=== PATIENT | female | born 1960 | race African-American/Black ===

== ENCOUNTER 2022-03-27 22:33 | Inpatient (IN) | payer MEDICAID, OTHER ==
[~2022-03-27] VITALS: Ht 175.3 cm; Wt 127.0 kg
[2022-03-27 23:34] LABS: Basophils # (auto) 0 10 ^3/uL (0-0.2); Basophils % (auto) 0.4 % (0.0-2.0); Eosinophils # (auto) 0.1 10 ^3/uL (0-0.8); Eosinophils % (auto) 1.3 % (0.0-7.0); Hematocrit 36.3 % (36.0-46.0); Lymphocytes # (auto) 1.7 10 ^3/uL (0.4-5.4); Lymphocytes % (auto) 23.3 % (10.0-50.0); Mean Corpuscular Hemoglobin 29.3 pg (28.0-32.0); Mean Corpuscular Volume 88.9 fL (80.0-100.0); Monocytes # (auto) 0.5 10 ^3/uL (0-1.3); Monocytes % (auto) 6.8 % (0.0-12.0); Neutrophils % (auto) 68.2 % (37.0-80.0); Nucleated Red Blood Cells % 0.3 %; Red Blood Cells 4.09 10^6/uL (4.0-5.20); Red Cell Distribution Width 14.4 % (11.8-14.3); White Blood Cell 7.4 10^3/uL (4.4-10.8)
[2022-03-27 23:48] LABS: Albumin 3.4 g/dL (3.4-5.0); Calcium 9.1 mg/dL (8.5-10.1); Magnesium 2.5 mg/dL (1.6-2.6); Potassium 4.5 mmol/L (3.5-5.1)
[2022-03-27 23:53] LABS: Bilirubin, Total 0.2 mg/dL (0.2-1.0); Total Protein 6.9 g/dL (6.4-8.2)
[2022-03-28 00:08] LABS: BUN/Creatinine Ratio 22.2
[2022-03-28] MEDS ORDERED: ASPirin 325 MG TAB PO ONE (02:00)
[2022-03-28] MEDS ORDERED: NITROGLYCERIN 0.4 MG SL TAB SL ONE (02:00)
[2022-03-28] MEDS ORDERED: MORPHINE SULFATE INJECTION 2 MG/ML SYRG IV PRN (05:00)
[2022-03-28] MEDS ORDERED: NITROGLYCERIN 0.4 MG SL TAB SL PRN (05:00)
[2022-03-28] MEDS ORDERED: ACETAMINOPHEN 325 MG TAB PO PRN (05:00)
[2022-03-28] MEDS ORDERED: TEMAZEPAM 15 MG CAP PO PRN (05:00)
[2022-03-28] MEDS ORDERED: ONDANSETRON HCL 4 MG/2 ML VIAL IV PRN (05:00)
[2022-03-28] MEDS ORDERED: DEXTROSE (50%) 50ML SYRG IV PRN (05:00)
[2022-03-28] MEDS: InsuLIN REG 1unit/0.01ml Soln (100units/ml) SC SCH ×4 (07:00→22:00)
[2022-03-28] MEDS: ACCU-CHEK COMFORT CURVE STRIP VI SCH ×4 (07:45→22:23)
[2022-03-28 08:54] LABS: Urine Bacteria FEW /hpf (None Seen); Urine Blood Negative /uL (Negative); Urine Mucus FEW (None Seen); Urine WBC 7 /hpf (0 - 5)
[2022-03-28] MEDS ORDERED: NICOTINE 14 MG/24HR TOPICAL PATCH TD ONE (10:45)
[2022-03-28 11:51] LABS: Amphetamine Screen, Urine NEGATIVE (NEGATIVE); Barbiturate Scree,Urine NEGATIVE (NEGATIVE); Benzodiazephine Screen, Urine NEGATIVE (NEGATIVE); Cannabinoid Screen, Urine NEGATIVE (NEGATIVE); Cocaine Screen, Urine NEGATIVE (NEGATIVE); Opiate Scree,Urine NEGATIVE (NEGATIVE); Phencyclidine Screen, Urine NEGATIVE (NEGATIVE)
[2022-03-28 12:02] LABS: Cholesterol 166 mg/dL (< 200)
[2022-03-28 12:04] LABS: HDL Cholesterol 30 mg/dL (40-59); LDL Cholesterol 116 mg/dL (< 100); Triglycerides 123 mg/dL (< 150)
[2022-03-28] MEDS: ENOXAPARIN SOD 40 MG/0.4 ML SYRINGE SC SCH (12:52)
[2022-03-28] MEDS: ASPirin 81 mg TAB PO SCH (12:52)
[2022-03-28] MEDS: PANTOPRAZOLE 40 MG TAB PO SCH (12:52)
[2022-03-28] MEDS: LISINOPRIL 10 MG TAB PO SCH (12:52)
[2022-03-28 13:00] VITALS: BP 109/59
[2022-03-28 16:57] VITALS: BP 115/65
[2022-03-28] MEDS: ATORVASTATIN 20 MG TAB PO SCH (21:53)
[2022-03-28 22:00] VITALS: BP 103/42
[2022-03-29] MEDS ORDERED: LISI-716 PO (03:33)
[2022-03-29 05:00] VITALS: BP 110/60
[2022-03-29 05:48] LABS: Basophils # (auto) 0 10 ^3/uL (0-0.2); Basophils % (auto) 0.4 % (0.0-2.0); Eosinophils # (auto) 0.1 10 ^3/uL (0-0.8); Eosinophils % (auto) 1.5 % (0.0-7.0); Hematocrit 35.7 % (36.0-46.0); Hemoglobin 11.6 g/dL (12.2-16.2); Lymphocytes # (auto) 1.6 10 ^3/uL (0.4-5.4); Lymphocytes % (auto) 27.8 % (10.0-50.0); Mean Corpuscular Hemoglobin 29.1 pg (28.0-32.0); Mean Corpuscular Hgb Conc. 32.7 g/dL (32.0-36.0); Mean Corpuscular Volume 89.2 fL (80.0-100.0); Monocytes # (auto) 0.4 10 ^3/uL (0-1.3); Monocytes % (auto) 7.4 % (0.0-12.0); Neutrophils # (auto) 3.6 10 ^3/uL (1.6-8.6); Neutrophils % (auto) 62.9 % (37.0-80.0); Nucleated Red Blood Cells % 0.1 %; White Blood Cell 5.7 10^3/uL (4.4-10.8)
[2022-03-29 06:01] LABS: Calcium 8.9 mg/dL (8.5-10.1); Potassium 4.3 mmol/L (3.5-5.1)
[2022-03-29] MEDS: ACCU-CHEK COMFORT CURVE STRIP VI SCH ×4 (06:04→21:48)
[2022-03-29] MEDS: InsuLIN REG 1unit/0.01ml Soln (100units/ml) SC SCH ×4 (06:04→21:48)
[2022-03-29 06:11] LABS: BUN/Creatinine Ratio 24.2
[2022-03-29 09:00] VITALS: BP 111/83
[2022-03-29] MEDS ORDERED: ADENOSINE 115 MG in GIVE UN-DILUTED 0 ML IV ONE (09:15)
[2022-03-29] MEDS: PANTOPRAZOLE 40 MG TAB PO SCH (10:00)
[2022-03-29] MEDS: NICOTINE 14 MG/24HR TOPICAL PATCH TD SCH (10:00)
[2022-03-29] MEDS: ENOXAPARIN SOD 40 MG/0.4 ML SYRINGE SC SCH (10:00)
[2022-03-29] MEDS: ASPirin 81 mg TAB PO SCH (10:00)
[2022-03-29] MEDS: LISINOPRIL 10 MG TAB PO SCH (10:00)
[2022-03-29 13:00] VITALS: BP 113/70
[2022-03-29 17:00] VITALS: BP 123/65
[2022-03-29] MEDS: CARVEDILOL 3.125 MG TAB PO SCH (21:56)
[2022-03-29] MEDS: ATORVASTATIN 20 MG TAB PO SCH (21:57)
[2022-03-29 22:00] VITALS: BP 108/54
[2022-03-30 05:00] VITALS: BP_SYST 109; BP_DIAS 49; BP_DIAS 52
[2022-03-30] MEDS: InsuLIN REG 1unit/0.01ml Soln (100units/ml) SC SCH ×4 (05:57→21:58)
[2022-03-30] MEDS: ACCU-CHEK COMFORT CURVE STRIP VI SCH ×4 (05:57→21:57)
[2022-03-30 09:00] VITALS: BP 108/64
[2022-03-30] MEDS: ASPirin 81 mg TAB PO SCH (09:58)
[2022-03-30] MEDS: PANTOPRAZOLE 40 MG TAB PO SCH (09:58)
[2022-03-30] MEDS: CARVEDILOL 3.125 MG TAB PO SCH ×2 (10:00→21:57)
[2022-03-30] MEDS: LISINOPRIL 5 MG TAB PO SCH (10:03)
[2022-03-30] MEDS: ENOXAPARIN SOD 40 MG/0.4 ML SYRINGE SC SCH (10:04)
[2022-03-30] MEDS: NICOTINE 14 MG/24HR TOPICAL PATCH TD SCH (10:07)
[2022-03-30] MEDS: ATORVASTATIN 20 MG TAB PO SCH ×2 (12:11→21:57)
[2022-03-30 13:00] VITALS: BP 113/58
[2022-03-30 17:00] VITALS: BP 103/60
[2022-03-30 22:00] VITALS: BP 110/61
[2022-03-31 05:00] VITALS: BP 103/52
[2022-03-31] MEDS: ACCU-CHEK COMFORT CURVE STRIP VI SCH ×4 (06:10→22:06)
[2022-03-31] MEDS: InsuLIN REG 1unit/0.01ml Soln (100units/ml) SC SCH ×4 (06:10→22:00)
[2022-03-31 09:00] VITALS: BP 104/66
[2022-03-31] MEDS: NICOTINE 14 MG/24HR TOPICAL PATCH TD SCH (10:17)
[2022-03-31] MEDS: ASPirin 81 mg TAB PO SCH (10:19)
[2022-03-31] MEDS: ENOXAPARIN SOD 40 MG/0.4 ML SYRINGE SC SCH (10:19)
[2022-03-31] MEDS: PANTOPRAZOLE 40 MG TAB PO SCH (10:19)
[2022-03-31] MEDS: LISINOPRIL 5 MG TAB PO SCH (10:19)
[2022-03-31] MEDS: CARVEDILOL 3.125 MG TAB PO SCH ×2 (10:20→22:05)
[2022-03-31 17:00] VITALS: BP 107/57
[2022-03-31 22:00] VITALS: BP 107/73
[2022-03-31] MEDS: ATORVASTATIN 20 MG TAB PO SCH (22:06)
[2022-04-01] VITALS (8 sets, daily range): BP systolic 100–137; BP diastolic 57–74
[2022-04-01] MEDS: InsuLIN REG 1unit/0.01ml Soln (100units/ml) SC SCH ×4 (06:18→21:54)
[2022-04-01] MEDS: ACCU-CHEK COMFORT CURVE STRIP VI SCH ×4 (06:18→21:54)
[2022-04-01 06:22] LABS: INR 0.99 (0.9-1.15); Partial Thromboplastin Time 26.2 sec (23.6-33.0)
[2022-04-01 09:33] LABS: Basophils # (auto) 0 10 ^3/uL (0-0.2); Basophils % (auto) 0.6 % (0.0-2.0); Eosinophils # (auto) 0.1 10 ^3/uL (0-0.8); Eosinophils % (auto) 1.5 % (0.0-7.0); Hematocrit 35.5 % (36.0-46.0); Hemoglobin 11.8 g/dL (12.2-16.2); Lymphocytes # (auto) 1.8 10 ^3/uL (0.4-5.4); Lymphocytes % (auto) 29.4 % (10.0-50.0); Mean Corpuscular Hemoglobin 29.5 pg (28.0-32.0); Mean Corpuscular Hgb Conc. 33.1 g/dL (32.0-36.0); Monocytes # (auto) 0.5 10 ^3/uL (0-1.3); Monocytes % (auto) 7.9 % (0.0-12.0); Neutrophils # (auto) 3.8 10 ^3/uL (1.6-8.6); Neutrophils % (auto) 60.6 % (37.0-80.0); Nucleated Red Blood Cells % 0.1 %; Red Blood Cells 3.99 10^6/uL (4.0-5.20); Red Cell Distribution Width 15.1 % (11.8-14.3); White Blood Cell 6.2 10^3/uL (4.4-10.8)
[2022-04-01 09:44] LABS: Potassium 4.4 mmol/L (3.5-5.1)
[2022-04-01] MEDS: CARVEDILOL 3.125 MG TAB PO SCH ×2 (10:00→21:54)
[2022-04-01] MEDS: LISINOPRIL 5 MG TAB PO SCH (10:00)
[2022-04-01] MEDS: ASPirin 81 mg TAB PO SCH (10:00)
[2022-04-01] MEDS: ENOXAPARIN SOD 40 MG/0.4 ML SYRINGE SC SCH (10:00)
[2022-04-01] MEDS: PANTOPRAZOLE 40 MG TAB PO SCH (10:00)
[2022-04-01] MEDS ORDERED: MIDAZOLAM HCL 2MG/2ML 2ml VIAL (1mg/ml) ONE ×2 (12:08→13:13)
[2022-04-01] MEDS ORDERED: ANGIOMAX 250 MG VIAL IV ONE (12:08)
[2022-04-01] MEDS ORDERED: fentaNYL CITRATE 100 MCG/2 ML VL ONE ×2 (12:08→13:12)
[2022-04-01] MEDS ORDERED: VERAPAMIL 2.5MG/ML INJ 2ML VIAL IV ONE (12:08)
[2022-04-01] MEDS ORDERED: LIDOCAINE 2%HCL (LOCAL ANESTH.) INJ 10ml MDV ONE (12:09)
[2022-04-01] MEDS ORDERED: SODIUM CHL 0.9% 50 ML ONE (12:09)
[2022-04-01] MEDS ORDERED: HEPARIN SODIUM (PORCINE) 5000 UNITS/ML 1ML VIAL ONE (12:10)
[2022-04-01] MEDS ORDERED: IODIXANOL 320MG/ML 100ML BTL IV ONE (12:45)
[2022-04-01] MEDS ORDERED: CLOPIDOGREL 300 MG TAB ONE (13:14)
[2022-04-01] MEDS: NICOTINE 14 MG/24HR TOPICAL PATCH TD SCH (16:22)
[2022-04-01] MEDS: ATORVASTATIN 20 MG TAB PO SCH (21:54)
[2022-04-01] MEDS ORDERED: guaiFENesin-DM 100/10mg/5ml SYR PO PRN (22:45)
[2022-04-02 05:00] VITALS: BP 110/52
[2022-04-02] MEDS: ACCU-CHEK COMFORT CURVE STRIP VI SCH ×2 (06:26→12:05)
[2022-04-02] MEDS: InsuLIN REG 1unit/0.01ml Soln (100units/ml) SC SCH ×2 (06:26→11:30)
[2022-04-02 06:52] LABS: Potassium 4.4 mmol/L (3.5-5.1)
[2022-04-02 08:52] VITALS: BP 116/67
[2022-04-02] MEDS: PANTOPRAZOLE 40 MG TAB PO SCH (09:11)
[2022-04-02] MEDS: ENOXAPARIN SOD 40 MG/0.4 ML SYRINGE SC SCH (09:11)
[2022-04-02] MEDS: LISINOPRIL 5 MG TAB PO SCH (09:12)
[2022-04-02] MEDS: CARVEDILOL 3.125 MG TAB PO SCH (09:12)
[2022-04-02] MEDS: ASPirin 81 mg TAB PO SCH (09:12)
[2022-04-02] MEDS ORDERED: CLOPIDOGREL BISULFATE 75 MG TAB PO SCH (10:00)
[2022-04-02] MEDS ORDERED: CAR3125T PO (11:23)
[2022-04-02] MEDS ORDERED: CLOP75TA28 PO (11:23)
[2022-04-02] MEDS ORDERED: ASPI-498 PO (11:23)
[2022-04-02] MEDS ORDERED: METO25TA5 PO (11:23)
[2022-04-02] MEDS ORDERED: LISI20TA28 PO (11:23)
[2022-04-02] MEDS ORDERED: NIC21P TOP (11:23)
[2022-04-02] MEDS ORDERED: ATO40T PO (11:23)
[2022-04-02] MEDS: NICOTINE 14 MG/24HR TOPICAL PATCH TD SCH (12:07)
[2022-04-02 12:56] VITALS: BP 135/69
[2022-04-02 13:12] VITALS: BP 116/67
== END 2022-04-02 14:18 | disposition home or self-care (01) | DRG 175 ==
LOC: ER 22:33 → TELE 03-28 04:53 → TELE-WESTW 03-28 10:20
PROVIDERS: ADMIT Nurse Practitioner; ATTEND Family Medicine
PROC: 027137Z Dilation of Coronary Artery, Two Arteries with Four or More Drug-eluting Intraluminal Devices, Percutaneous Approach (ICD-10-PCS; principal; 2022-04-01)
PROC: B211YZZ Fluoroscopy of Multiple Coronary Arteries using Other Contrast (ICD-10-PCS; 2022-04-01)
PROC: B215YZZ Fluoroscopy of Left Heart using Other Contrast (ICD-10-PCS; 2022-04-01)
PROC: 4A033BC Measurement of Arterial Pressure, Coronary, Percutaneous Approach (ICD-10-PCS; 2022-04-01)
PROC: B240ZZ3 Ultrasonography of Single Coronary Artery, Intravascular (ICD-10-PCS; 2022-04-01)
PROC: 4A023N7 Measurement of Cardiac Sampling and Pressure, Left Heart, Percutaneous Approach (ICD-10-PCS; 2022-04-01)
DX: I25.110 Atherosclerotic heart disease of native coronary artery with unstable angina pectoris (principal); I50.21 Acute systolic (congestive) heart failure; I11.0 Hypertensive heart disease with heart failure; J44.1 Chronic obstructive pulmonary disease with (acute) exacerbation; E11.9 Type 2 diabetes mellitus without complications; E66.01 Morbid (severe) obesity due to excess calories; Z68.41 Body mass index [BMI] 40.0-44.9, adult; E78.5 Hyperlipidemia, unspecified; F17.200 Nicotine dependence, unspecified, uncomplicated; Z79.4 Long term (current) use of insulin; Z86.16 Personal history of COVID-19; Z20.822 Contact with and (suspected) exposure to COVID-19
CPT/HCPCS: 36415; 71045; 74176; 78452; 80048; 80053; 80061; 80307; 81001; 82962; 83036; 83735; 83880; 84443; 84484; 84702; 85025; 85610; 85730; 86850; 86900; 86901; 92928; 92929; 92978; 93005; 93017; 93306; 93458; 93571; 99152; 99153; C1874; C1887; G0378; J0153; J1815; J2001; J2250; Q9967

== ENCOUNTER 2023-04-29 15:48 | Inpatient (IN) | payer MEDICAID, OTHER ==
[~2023-04-29] VITALS: Ht 170.2 cm; Wt 128.1 kg
[~2023-04-29 15:48] MED LIST: ASPI-498 PO; ATO40T PO; CAR3125T PO; CLOP75TA28 PO; LISI10TA34 PO; LISI20TA56 PO; METO25TA5 PO; NIC21P TOP
[2023-04-29 16:22] LABS: Basophils # (auto) 0 10 ^3/uL (0-0.2); Basophils % (auto) 0.4 % (0.0-2.0); Eosinophils # (auto) 0.1 10 ^3/uL (0-0.8); Eosinophils % (auto) 1.1 % (0.0-7.0); Hematocrit 37.8 % (36.0-46.0); Lymphocytes # (auto) 1.2 10 ^3/uL (0.4-5.4); Lymphocytes % (auto) 16.9 % (10.0-50.0); Mean Corpuscular Hemoglobin 28.8 pg (28.0-32.0); Mean Corpuscular Hgb Conc. 31.6 g/dL (32.0-36.0); Mean Corpuscular Volume 90.9 fL (80.0-100.0); Monocytes # (auto) 0.5 10 ^3/uL (0-1.3); Monocytes % (auto) 7.2 % (0.0-12.0); Neutrophils # (auto) 5.2 10 ^3/uL (1.6-8.6); Neutrophils % (auto) 74.4 % (37.0-80.0); Nucleated Red Blood Cells % 0.1 %; Red Blood Cells 4.16 10^6/uL (4.0-5.20); Red Cell Distribution Width 14.6 % (11.8-14.3); White Blood Cell 6.9 10^3/uL (4.4-10.8)
[2023-04-29 16:44] LABS: Albumin 2.9 g/dL (3.4-5.0); BUN/Creatinine Ratio 20.9 (10.0-20.0); Calcium 8.7 mg/dL (8.5-10.1); Potassium 4.4 mmol/L (3.5-5.1)
[2023-04-29 16:47] LABS: Bilirubin, Total 0.2 mg/dL (0.2-1.0); Total Protein 7.1 g/dL (6.4-8.2)
[2023-04-29] MEDS ORDERED: metroNIDAZOLE 500MG/100ML 100 ML IV ONE (21:45)
[2023-04-29] MEDS ORDERED: PANTOPRAZOLE 40 MG/10 ML VIAL INJ IV ONE (22:00)
[2023-04-29] MEDS ORDERED: ONDANSETRON HCL 4 MG/2 ML VIAL IV PRN (22:00)
[2023-04-29] MEDS ORDERED: DEXTROSE (50%) 50ML SYRG IV PRN (22:00)
[2023-04-29 23:11] LABS: INR 0.93 (0.9-1.15); Partial Thromboplastin Time 26.2 sec (24.6-33.4)
[2023-04-30 02:57] LABS: Hematocrit 37.6 % (36.0-46.0); Hemoglobin 12.2 g/dL (12.2-16.2)
[2023-04-30] MEDS: metroNIDAZOLE 500MG/100ML 100 ML IV SCH ×4 (05:29→21:55)
[2023-04-30] MEDS: SODIUM CHLORIDE 0.9% 1,000 ML IV SCH ×2 (05:30→11:28)
[2023-04-30] MEDS: InsuLIN REG 1unit/0.01ml Soln (100units/ml) SC SCH ×5 (05:39→23:53)
[2023-04-30] MEDS: ACCU-CHEK COMFORT CURVE STRIP VI SCH ×5 (05:39→23:53)
[2023-04-30 07:19] LABS: Basophils # (auto) 0 10 ^3/uL (0-0.2); Basophils % (auto) 0.4 % (0.0-2.0); Eosinophils # (auto) 0.1 10 ^3/uL (0-0.8); Eosinophils % (auto) 1.2 % (0.0-7.0); Hematocrit 37.9 % (36.0-46.0); Hemoglobin 12.4 g/dL (12.2-16.2); Lymphocytes # (auto) 1.2 10 ^3/uL (0.4-5.4); Lymphocytes % (auto) 20.8 % (10.0-50.0); Mean Corpuscular Hemoglobin 29.4 pg (28.0-32.0); Mean Corpuscular Hgb Conc. 32.6 g/dL (32.0-36.0); Mean Corpuscular Volume 90.2 fL (80.0-100.0); Monocytes # (auto) 0.5 10 ^3/uL (0-1.3); Monocytes % (auto) 7.7 % (0.0-12.0); Neutrophils # (auto) 4.1 10 ^3/uL (1.6-8.6); Neutrophils % (auto) 69.9 % (37.0-80.0); Red Blood Cells 4.21 10^6/uL (4.0-5.20); Red Cell Distribution Width 14.3 % (11.8-14.3); White Blood Cell 5.9 10^3/uL (4.4-10.8)
[2023-04-30 07:22] LABS: BUN/Creatinine Ratio 20.3 (10.0-20.0); Calcium 8.6 mg/dL (8.5-10.1); Potassium 3.7 mmol/L (3.5-5.1)
[2023-04-30] MEDS: PANTOPRAZOLE 40 MG/10 ML VIAL INJ IV SCH (09:52)
[2023-04-30] MEDS ORDERED: cefTRIAXone 1GM/50ML D5W 50 ML IV ONE (14:15)
[2023-04-30] MEDS ORDERED: MORPHINE SULFATE INJ 2 MG/ml SYRG IV PRN (16:00)
[2023-04-30] MEDS ORDERED: ACETAMINOPHEN 325 MG TAB PO PRN (16:00)
[2023-04-30] MEDS ORDERED: ATOR40TA52 PO (19:12)
[2023-04-30] MEDS ORDERED: ALBUTEROL SULF 2.5 MG/0.5ML(0.5%) NEB SOLN NEB PRN (20:30)
[2023-04-30] MEDS ORDERED: IPRATROPIUM BROM 0.5 MG/2.5ML INH SOL NEB PRN (20:30)
[2023-04-30 20:31] VITALS: BP 117/52
[2023-04-30 22:00] VITALS: BP 110/52
[2023-05-01 05:00] VITALS: BP 105/58
[2023-05-01] MEDS: metroNIDAZOLE 500MG/100ML 100 ML IV SCH ×2 (05:47→14:39)
[2023-05-01] MEDS: SODIUM CHLORIDE 0.9% 1,000 ML IV SCH ×2 (05:48→06:58)
[2023-05-01] MEDS: ACCU-CHEK COMFORT CURVE STRIP VI SCH ×3 (05:49→18:00)
[2023-05-01] MEDS: InsuLIN REG 1unit/0.01ml Soln (100units/ml) SC SCH ×3 (05:52→18:00)
[2023-05-01 06:16] LABS: Calcium 8.6 mg/dL (8.5-10.1)
[2023-05-01 06:19] LABS: BUN/Creatinine Ratio 21.4 (10.0-20.0); Magnesium 2.4 mg/dL (1.6-2.6)
[2023-05-01 06:31] LABS: Basophils # (auto) 0 10 ^3/uL (0-0.2); Basophils % (auto) 0.3 % (0.0-2.0); Eosinophils # (auto) 0.1 10 ^3/uL (0-0.8); Eosinophils % (auto) 1.5 % (0.0-7.0); Hematocrit 35.8 % (36.0-46.0); Hemoglobin 11.6 g/dL (12.2-16.2); Mean Corpuscular Hemoglobin 29.4 pg (28.0-32.0); Mean Corpuscular Hgb Conc. 32.5 g/dL (32.0-36.0); Mean Corpuscular Volume 90.6 fL (80.0-100.0); Monocytes # (auto) 0.4 10 ^3/uL (0-1.3); Monocytes % (auto) 7.2 % (0.0-12.0); Neutrophils # (auto) 4.5 10 ^3/uL (1.6-8.6); Red Blood Cells 3.95 10^6/uL (4.0-5.20); Red Cell Distribution Width 14.4 % (11.8-14.3); White Blood Cell 6.1 10^3/uL (4.4-10.8)
[2023-05-01 09:00] VITALS: BP 129/60
[2023-05-01] MEDS ORDERED: cefTRIAXone 1GM/50ML D5W 50 ML IV SCH (09:00)
[2023-05-01] MEDS: PANTOPRAZOLE 40 MG/10 ML VIAL INJ IV SCH (10:05)
[2023-05-01 13:00] VITALS: BP 117/66
[2023-05-01] MEDS ORDERED: METR-344 PO (16:42)
[2023-05-01] MEDS ORDERED: CIPR-173 PO (16:42)
[2023-05-01 17:11] VITALS: BP 117/66
[2023-05-01 17:23] VITALS: BP 118/62
== END 2023-05-01 19:15 | disposition home or self-care (01) | DRG 249 ==
LOC: ER 15:48 → OVERFLOW 22:03 → EAST 04-30 18:45
PROVIDERS: ADMIT Nurse Practitioner; ATTEND Internal Medicine Geriatric Medicine
DX: K52.9 Noninfective gastroenteritis and colitis, unspecified (principal); K57.91 Diverticulosis of intestine, part unspecified, without perforation or abscess with bleeding; E11.9 Type 2 diabetes mellitus without complications; E66.01 Morbid (severe) obesity due to excess calories; I25.10 Atherosclerotic heart disease of native coronary artery without angina pectoris; J45.909 Unspecified asthma, uncomplicated; I10 Essential (primary) hypertension; Z68.41 Body mass index [BMI] 40.0-44.9, adult; E78.5 Hyperlipidemia, unspecified; F17.210 Nicotine dependence, cigarettes, uncomplicated; Z87.11 Personal history of peptic ulcer disease; Z95.5 Presence of coronary angioplasty implant and graft
CPT/HCPCS: 36415; 71045; 74176; 80048; 80053; 82962; 83735; 84484; 85014; 85018; 85025; 85610; 85730; 86850; 86900; 86901; 93005; 94640; 96365; 96375; C9113; G0378; J0696; J1815; J3490

== ENCOUNTER 2023-07-24 16:18 | Inpatient (IN) | payer MEDICAID, OTHER ==
[~2023-07-24] VITALS: Ht 170.2 cm; Wt 108.9 kg
[~2023-07-24 16:18] MED LIST changes: -ASPI-498 PO; +CIPR-173 PO; -CLOP75TA28 PO; -LISI10TA34 PO; +METR-344 PO
[2023-07-24 16:55] LABS: Basophils # (auto) 0 10 ^3/uL (0-0.2); Hemoglobin 10.4 g/dL (12.2-16.2); Lymphocytes # (auto) 1.4 10 ^3/uL (0.4-5.4); Mean Corpuscular Hemoglobin 26.1 pg (28.0-32.0); Mean Corpuscular Volume 82.8 fL (80.0-100.0); Monocytes # (auto) 0.6 10 ^3/uL (0-1.3); White Blood Cell 7.6 10^3/uL (4.4-10.8)
[2023-07-24 16:56] LABS: Basophils % (auto) 0.3 % (0.0-2.0); Eosinophils # (auto) 0.1 10 ^3/uL (0-0.8); Eosinophils % (auto) 0.7 % (0.0-7.0); Hematocrit 32.9 % (36.0-46.0); Lymphocytes % (auto) 18.5 % (10.0-50.0); Mean Corpuscular Hgb Conc. 31.4 g/dL (32.0-36.0); Neutrophils # (auto) 5.5 10 ^3/uL (1.6-8.6); Neutrophils % (auto) 72.5 % (37.0-80.0); Nucleated Red Blood Cells % 0.1 %; Red Blood Cells 3.98 10^6/uL (4.0-5.20); Red Cell Distribution Width 16.2 % (11.8-14.3)
[2023-07-24 17:15] LABS: Albumin 4.1 g/dL (3.2-4.8); Alkaline Phosphatase 99 U/L (46-116); Anion Gap 8.3 (5-15); Bilirubin, Total 0.4 mg/dL (0.2-1.0); Blood Urea Nitrogen 14 mg/dL (9-23); Calcium 8.8 mg/dL (8.5-10.1); Carbon Dioxide 24.7 mmol/L (20-30); Chloride 106 mmol/L (98-107); Glucose 109 mg/dL (74-106); Potassium 4.2 mmol/L (3.5-5.1); Sodium 139 mmol/L (136-145); Total Protein 6.9 g/dL (5.7-8.2)
[2023-07-24 17:16] LABS: Alanine Aminotransferase < 9 U/L (7-40); Aspartate Aminotransferase < 8 U/L (13-40)
[2023-07-24] MEDS ORDERED: PANTOPRAZOLE 40 MG/10 ML VIAL INJ IV ONE (20:00)
[2023-07-24] MEDS ORDERED: HYDROcodone-ACET 5/325MG TAB PO PRN (20:00)
[2023-07-24 20:42] LABS: Triglycerides 137 mg/dL (< 150)
[2023-07-24 20:43] LABS: LDL Cholesterol 109 mg/dL (< 100)
[2023-07-24 20:44] LABS: Cholesterol 149 mg/dL (< 200); HDL Cholesterol 31 mg/dL (40-59)
[2023-07-24] MEDS: CARVEDILOL 3.125 MG TAB PO SCH (20:59)
[2023-07-24] MEDS: SODIUM CHLORIDE 0.9% 1,000 ML IV SCH (20:59)
[2023-07-24] MEDS ORDERED: DEXTROSE (50%) 50ML SYRG IV PRN (21:15)
[2023-07-24] MEDS: InsuLIN REG 1unit/0.01ml Soln (100units/ml) SC SCH (21:17)
[2023-07-24] MEDS: ACCU-CHEK COMFORT CURVE STRIP VI SCH (21:18)
[2023-07-25] MEDS: InsuLIN REG 1unit/0.01ml Soln (100units/ml) SC SCH ×4 (07:00→21:50)
[2023-07-25] MEDS: ACCU-CHEK COMFORT CURVE STRIP VI SCH ×4 (07:02→22:48)
[2023-07-25 07:09] LABS: Basophils # (auto) 0 10 ^3/uL (0-0.2); Eosinophils # (auto) 0.1 10 ^3/uL (0-0.8); Eosinophils % (auto) 1.6 % (0.0-7.0); Hemoglobin 9.6 g/dL (12.2-16.2); Mean Corpuscular Hemoglobin 26.3 pg (28.0-32.0); Nucleated Red Blood Cells % 0.1 %
[2023-07-25 07:12] LABS: Basophils % (auto) 0.4 % (0.0-2.0); Hematocrit 30.7 % (36.0-46.0); Lymphocytes # (auto) 1.5 10 ^3/uL (0.4-5.4); Lymphocytes % (auto) 28.3 % (10.0-50.0); Mean Corpuscular Hgb Conc. 31.3 g/dL (32.0-36.0); Monocytes # (auto) 0.4 10 ^3/uL (0-1.3); Monocytes % (auto) 8.2 % (0.0-12.0); Neutrophils # (auto) 3.4 10 ^3/uL (1.6-8.6); Neutrophils % (auto) 61.5 % (37.0-80.0); Red Blood Cells 3.65 10^6/uL (4.0-5.20); Red Cell Distribution Width 16.1 % (11.8-14.3); White Blood Cell 5.5 10^3/uL (4.4-10.8)
[2023-07-25 07:30] LABS: Albumin 3.8 g/dL (3.2-4.8); Alkaline Phosphatase 88 U/L (46-116); Anion Gap 6.1 (5-15); Aspartate Aminotransferase < 8 U/L (13-40); BUN/Creatinine Ratio 19.7 (10.0-20.0); Blood Urea Nitrogen 15 mg/dL (9-23); Calcium 8.8 mg/dL (8.5-10.1); Carbon Dioxide 24.9 mmol/L (20-30); Chloride 108 mmol/L (98-107); Glucose 105 mg/dL (74-106); Potassium 4.1 mmol/L (3.5-5.1); Sodium 139 mmol/L (136-145)
[2023-07-25 07:31] LABS: Bilirubin, Total 0.3 mg/dL (0.2-1.0); Total Protein 6.6 g/dL (5.7-8.2)
[2023-07-25 07:36] LABS: Alanine Aminotransferase < 9 U/L (7-40)
[2023-07-25] MEDS: CARVEDILOL 3.125 MG TAB PO SCH ×2 (10:00→21:46)
[2023-07-25] MEDS: PANTOPRAZOLE 40 MG/10 ML VIAL INJ IV SCH (11:27)
[2023-07-25] MEDS: SODIUM CHLORIDE 0.9% 1,000 ML IV SCH (12:44)
[2023-07-25] MEDS: LISINOPRIL 20 MG TAB PO SCH (12:46)
[2023-07-25] MEDS: NICOTINE 21MG/24 HR TOPICAL PATCH TD SCH (12:48)
[2023-07-25 14:42] VITALS: BP 123/54; PULSE 75; RESP 18; TEMP 98; O2SAT 96
[2023-07-25 14:56] VITALS: BP 123/54; PULSE 75; RESP 18; TEMP 98; O2SAT 96
[2023-07-25 16:27] VITALS: BP 138/84; PULSE 79; RESP 16; TEMP 98.7; O2SAT 94
[2023-07-25] MEDS: ATORVASTATIN 20 MG TAB PO SCH (17:40)
[2023-07-25] MEDS: ACETAMINOPHEN 325 MG TAB PO PRN ×2 (17:40→21:45)
[2023-07-25 20:00] VITALS: PULSE 83; RESP 19; O2SAT 100
[2023-07-25] MEDS: metroNIDAZOLE 500MG/100ML 100 ML IV SCH (21:50)
[2023-07-25 22:00] VITALS: BP 128/67; PULSE 83; RESP 19; TEMP 98; O2SAT 93
[2023-07-26] MEDS ORDERED: NITROGLYCERIN 0.4 MG SL TAB SL ONE (01:16)
[2023-07-26] MEDS: CARVEDILOL 3.125 MG TAB PO SCH ×2 (02:47→22:00)
[2023-07-26] MEDS ORDERED: MORPHINE SULFATE INJ 2 MG/ml SYRG IV PRN (03:00)
[2023-07-26] MEDS ORDERED: NITROGLYCERIN 0.4 MG SL TAB SL PRN ×2 (03:00)
[2023-07-26 05:00] VITALS: BP 122/60; PULSE 83; RESP 20; TEMP 98; O2SAT 97
[2023-07-26] MEDS: SODIUM CHLORIDE 0.9% 1,000 ML IV SCH ×2 (05:20→22:08)
[2023-07-26] MEDS: metroNIDAZOLE 500MG/100ML 100 ML IV SCH ×4 (05:37→22:04)
[2023-07-26] MEDS: SODIUM CHLOR 0.9% PF (SALINE LOCK) 10ML VIAL/SYR IV SCH ×3 (06:23→22:04)
[2023-07-26] MEDS: ACCU-CHEK COMFORT CURVE STRIP VI SCH ×4 (06:24→21:42)
[2023-07-26] MEDS: InsuLIN REG 1unit/0.01ml Soln (100units/ml) SC SCH ×4 (06:24→21:42)
[2023-07-26 10:00] LABS: Basophils # (auto) 0 10 ^3/uL (0-0.2); Eosinophils # (auto) 0.1 10 ^3/uL (0-0.8); Hemoglobin 9.4 g/dL (12.2-16.2); Lymphocytes % (auto) 20.4 % (10.0-50.0)
[2023-07-26 10:02] LABS: Basophils % (auto) 0.6 % (0.0-2.0); Eosinophils % (auto) 1.1 % (0.0-7.0); Hematocrit 30.1 % (36.0-46.0); Lymphocytes # (auto) 1.1 10 ^3/uL (0.4-5.4); Mean Corpuscular Hemoglobin 25.9 pg (28.0-32.0); Mean Corpuscular Hgb Conc. 31.4 g/dL (32.0-36.0); Mean Corpuscular Volume 82.6 fL (80.0-100.0); Monocytes # (auto) 0.4 10 ^3/uL (0-1.3); Monocytes % (auto) 7.9 % (0.0-12.0); Neutrophils # (auto) 3.9 10 ^3/uL (1.6-8.6); Nucleated Red Blood Cells % 0.1 %; Red Blood Cells 3.65 10^6/uL (4.0-5.20); Red Cell Distribution Width 16.3 % (11.8-14.3); White Blood Cell 5.6 10^3/uL (4.4-10.8)
[2023-07-26 10:08] LABS: Chloride 106 mmol/L (98-107); Potassium 3.9 mmol/L (3.5-5.1); Sodium 138 mmol/L (136-145)
[2023-07-26 10:09] LABS: Anion Gap 6.1 (5-15); Carbon Dioxide 25.9 mmol/L (20-30)
[2023-07-26 10:14] LABS: BUN/Creatinine Ratio 18.3 (10.0-20.0); Blood Urea Nitrogen 11 mg/dL (9-23); Glucose 108 mg/dL (74-106)
[2023-07-26] MEDS: PANTOPRAZOLE 40 MG/10 ML VIAL INJ IV SCH (10:37)
[2023-07-26] MEDS: LISINOPRIL 20 MG TAB PO SCH (10:41)
[2023-07-26] MEDS: NICOTINE 21MG/24 HR TOPICAL PATCH TD SCH (10:45)
[2023-07-26 13:00] VITALS: BP 113/53; PULSE 85; RESP 17; TEMP 98.4; O2SAT 94
[2023-07-26 16:48] VITALS: BP 92/59; PULSE 86; RESP 17; TEMP 98.7; O2SAT 94
[2023-07-26] MEDS: ATORVASTATIN 20 MG TAB PO SCH (18:01)
[2023-07-26] MEDS: ACETAMINOPHEN 325 MG TAB PO PRN (18:06)
[2023-07-26 20:00] VITALS: PULSE 108
[2023-07-26 22:00] VITALS: BP 91/58; PULSE 83; RESP 16; TEMP 98.3; O2SAT 98
[2023-07-27] VITALS (10 sets, daily range): BP systolic 97–119; BP diastolic 45–76; PULSE 84–96; RESP 16–20; TEMP 97.8–98.5; O2SAT 92–100
[2023-07-27] MEDS: metroNIDAZOLE 500MG/100ML 100 ML IV SCH ×3 (06:23→22:01)
[2023-07-27] MEDS: InsuLIN REG 1unit/0.01ml Soln (100units/ml) SC SCH (06:26)
[2023-07-27] MEDS: ACCU-CHEK COMFORT CURVE STRIP VI SCH (06:27)
[2023-07-27] MEDS: SODIUM CHLOR 0.9% PF (SALINE LOCK) 10ML VIAL/SYR IV SCH ×3 (06:27→22:01)
[2023-07-27] MEDS: PANTOPRAZOLE 40 MG/10 ML VIAL INJ IV SCH (11:37)
[2023-07-27] MEDS: SODIUM CHLORIDE 0.9% 1,000 ML IV SCH (13:41)
[2023-07-27] MEDS ORDERED: ALBUTEROL SULF 2.5 MG/0.5ML(0.5%) NEB SOLN NEB PRN (14:45)
[2023-07-27 17:54] LABS: Amphetamine Screen, Urine Neg (NEGATIVE); Barbiturate Scree,Urine Neg (NEGATIVE); Benzodiazephine Screen, Urine Neg (NEGATIVE); Cannabinoid Screen, Urine Neg (NEGATIVE); Cocaine Screen, Urine Neg (NEGATIVE); Opiate Scree,Urine Neg (NEGATIVE); Phencyclidine Screen, Urine Neg (NEGATIVE)
[2023-07-27] MEDS ORDERED: IPRATROPIUM BROM 0.5 MG/2.5ML INH SOL NEB SCH (18:00)
[2023-07-27] MEDS: ACETAMINOPHEN 325 MG TAB PO PRN (18:17)
[2023-07-27] MEDS: ATORVASTATIN 20 MG TAB PO SCH (18:17)
[2023-07-27 18:18] LABS: Urine Bacteria FEW /hpf (None Seen); Urine Blood Negative /uL (Negative); Urine Clarity Clear (Clear); Urine Color Yellow (Yellow); Urine Protein, UAD Negative (Negative); Urine Specific Gravity 1.022 (1.001-1.035); Urine Urobilinogen Normal (Negative); Urine WBC 8 /hpf (0 - 5)
[2023-07-27] MEDS ORDERED: GOLYTELY 4L KIT PO ONE (19:00)
[2023-07-27] MEDS ORDERED: POLYETHYLENE GLYCOL 17 GM PWDR PO ONE (19:00)
[2023-07-27] MEDS: ALBUTEROL SULF 2.5 MG/0.5ML(0.5%) NEB SOLN NEB PRN (19:21)
[2023-07-27] MEDS: IPRATROPIUM BROM 0.5 MG/2.5ML INH SOL NEB PRN (19:21)
[2023-07-28] VITALS (8 sets, daily range): BP systolic 104–131; BP diastolic 47–69; PULSE 81–95; RESP 17–20; TEMP 98.2–98.7; O2SAT 92–97
[2023-07-28] MEDS ORDERED: GOLYTELY 4L KIT PO ONE (06:00)
[2023-07-28] MEDS: metroNIDAZOLE 500MG/100ML 100 ML IV SCH ×3 (06:17→21:22)
[2023-07-28] MEDS: SODIUM CHLOR 0.9% PF (SALINE LOCK) 10ML VIAL/SYR IV SCH ×3 (06:20→21:22)
[2023-07-28 07:04] LABS: Albumin 4.1 g/dL (3.2-4.8); Alkaline Phosphatase 89 U/L (46-116); Aspartate Aminotransferase < 8 U/L (13-40); BUN/Creatinine Ratio 10.8 (10.0-20.0); Blood Urea Nitrogen 7 mg/dL (9-23); Chloride 106 mmol/L (98-107); Glucose 117 mg/dL (74-106); Potassium 4.1 mmol/L (3.5-5.1); Sodium 140 mmol/L (136-145)
[2023-07-28 07:05] LABS: Bilirubin, Total 0.5 mg/dL (0.2-1.0); Total Protein 6.8 g/dL (5.7-8.2)
[2023-07-28 07:18] LABS: Basophils # (auto) 0 10 ^3/uL (0-0.2); Eosinophils # (auto) 0.1 10 ^3/uL (0-0.8); Lymphocytes # (auto) 1.1 10 ^3/uL (0.4-5.4); Lymphocytes % (auto) 22.5 % (10.0-50.0); Monocytes # (auto) 0.4 10 ^3/uL (0-1.3); Neutrophils # (auto) 3.4 10 ^3/uL (1.6-8.6); Nucleated Red Blood Cells % 0.1 %
[2023-07-28 07:21] LABS: Alanine Aminotransferase < 9 U/L (7-40)
[2023-07-28 07:27] LABS: Basophils % (auto) 0.2 % (0.0-2.0); Eosinophils % (auto) 1.3 % (0.0-7.0); Hemoglobin 10.2 g/dL (12.2-16.2); Mean Corpuscular Hemoglobin 26.1 pg (28.0-32.0); Mean Corpuscular Hgb Conc. 31.9 g/dL (32.0-36.0); Mean Corpuscular Volume 81.8 fL (80.0-100.0); Monocytes % (auto) 7.7 % (0.0-12.0); Neutrophils % (auto) 68.3 % (37.0-80.0); Red Blood Cells 3.92 10^6/uL (4.0-5.20); Red Cell Distribution Width 16.2 % (11.8-14.3); White Blood Cell 4.9 10^3/uL (4.4-10.8)
[2023-07-28] MEDS ORDERED: POLYETHYLENE GLYCOL 17 GM PWDR PO ONE (07:30)
[2023-07-28] MEDS: SODIUM CHLORIDE 0.9% 1,000 ML IV SCH (07:30)
[2023-07-28] MEDS: PANTOPRAZOLE 40 MG/10 ML VIAL INJ IV SCH (09:04)
[2023-07-28] MEDS: NICOTINE 14 MG/24HR TOPICAL PATCH TD SCH (09:05)
[2023-07-28] MEDS ORDERED: PHENYLEPHRINE HCL 10 MG/ML VL IV ONE (11:11)
[2023-07-28] MEDS ORDERED: fentaNYL CITRATE 100 MCG/2 ML VL ONE (12:38)
[2023-07-28] MEDS ORDERED: MIDAZOLAM HCL 2MG/2ML 2ml VIAL (1mg/ml) ONE (12:38)
[2023-07-28] MEDS ORDERED: MEPERIDINE HCL (25 MG/ML) 1ML VIAL ONE (12:38)
[2023-07-28] MEDS ORDERED: PROPOFOL 10 MG/ML 20 ML IV ONE (12:49)
[2023-07-28] MEDS ORDERED: DexAMETHasone SOD PHOS 10MG/1ML VIAL INJ ONE (12:49)
[2023-07-28] MEDS: ATORVASTATIN 20 MG TAB PO SCH (17:28)
[2023-07-29] VITALS (9 sets, daily range): BP systolic 106–144; BP diastolic 36–82; PULSE 64–105; RESP 18–19; TEMP 97.7–98.6; O2SAT 95–99
[2023-07-29] MEDS: SODIUM CHLOR 0.9% PF (SALINE LOCK) 10ML VIAL/SYR IV SCH ×3 (06:23→22:57)
[2023-07-29] MEDS: metroNIDAZOLE 500MG/100ML 100 ML IV SCH ×3 (06:23→22:57)
[2023-07-29] MEDS: NICOTINE 14 MG/24HR TOPICAL PATCH TD SCH (09:50)
[2023-07-29] MEDS: PANTOPRAZOLE 40 MG/10 ML VIAL INJ IV SCH (09:57)
[2023-07-29 10:24] LABS: Basophils # (auto) 0 10 ^3/uL (0-0.2); Eosinophils # (auto) 0 10 ^3/uL (0-0.8); Lymphocytes # (auto) 1.8 10 ^3/uL (0.4-5.4); Monocytes # (auto) 0.6 10 ^3/uL (0-1.3)
[2023-07-29 10:27] LABS: Basophils % (auto) 0.2 % (0.0-2.0); Hematocrit 33.8 % (36.0-46.0); Hemoglobin 10.5 g/dL (12.2-16.2); Lymphocytes % (auto) 18.8 % (10.0-50.0); Mean Corpuscular Hgb Conc. 31.2 g/dL (32.0-36.0); Mean Corpuscular Volume 83.4 fL (80.0-100.0); Monocytes % (auto) 5.9 % (0.0-12.0); Neutrophils # (auto) 7.4 10 ^3/uL (1.6-8.6); Neutrophils % (auto) 75.1 % (37.0-80.0); Nucleated Red Blood Cells % 0.1 %; Red Blood Cells 4.05 10^6/uL (4.0-5.20); Red Cell Distribution Width 16.4 % (11.8-14.3); White Blood Cell 9.8 10^3/uL (4.4-10.8)
[2023-07-29 10:49] LABS: Chloride 104 mmol/L (98-107); Potassium 4.1 mmol/L (3.5-5.1); Sodium 137 mmol/L (136-145)
[2023-07-29 10:50] LABS: Calcium 9.5 mg/dL (8.5-10.1)
[2023-07-29 10:55] LABS: BUN/Creatinine Ratio 10.1 (10.0-20.0); Blood Urea Nitrogen 7 mg/dL (9-23); Glucose 175 mg/dL (74-106)
[2023-07-29] MEDS: SODIUM CHLORIDE 0.9% 1,000 ML IV SCH ×2 (13:00)
[2023-07-30] VITALS (13 sets, daily range): BP systolic 116–129; BP diastolic 52–64; PULSE 79–91; RESP 17–20; TEMP 97.5–98.9; O2SAT 91–100
[2023-07-30] MEDS: SODIUM CHLORIDE 0.9% 1,000 ML IV SCH ×2 (02:20→11:15)
[2023-07-30] MEDS: metroNIDAZOLE 500MG/100ML 100 ML IV SCH ×3 (06:52→22:01)
[2023-07-30] MEDS: SODIUM CHLOR 0.9% PF (SALINE LOCK) 10ML VIAL/SYR IV SCH ×3 (06:52→22:02)
[2023-07-30] MEDS: NICOTINE 14 MG/24HR TOPICAL PATCH TD SCH (09:35)
[2023-07-30] MEDS: PANTOPRAZOLE 40 MG/10 ML VIAL INJ IV SCH (09:35)
[2023-07-30] MEDS ORDERED: DEXTROSE (50%) 50ML SYRG IV PRN (11:00)
[2023-07-30] MEDS ORDERED: CLINIMIX PER PHARMACY 0 ML IV SCH (11:00)
[2023-07-30] MEDS: InsuLIN REG 1unit/0.01ml Soln (100units/ml) SC SCH ×2 (11:21→18:00)
[2023-07-30] MEDS: ACCU-CHEK COMFORT CURVE STRIP VI SCH ×3 (11:21→23:57)
[2023-07-30] MEDS: IPRATROPIUM BROM 0.5 MG/2.5ML INH SOL NEB PRN (11:48)
[2023-07-30] MEDS: ALBUTEROL SULF 2.5 MG/0.5ML(0.5%) NEB SOLN NEB PRN (11:48)
[2023-07-30 12:50] LABS: Basophils # (auto) 0 10 ^3/uL (0-0.2); Eosinophils # (auto) 0.1 10 ^3/uL (0-0.8); Monocytes # (auto) 0.5 10 ^3/uL (0-1.3)
[2023-07-30 12:51] LABS: Basophils % (auto) 0.5 % (0.0-2.0); Eosinophils % (auto) 0.8 % (0.0-7.0); Hematocrit 31.8 % (36.0-46.0); Hemoglobin 10.1 g/dL (12.2-16.2); Lymphocytes # (auto) 2.2 10 ^3/uL (0.4-5.4); Lymphocytes % (auto) 28.7 % (10.0-50.0); Mean Corpuscular Hemoglobin 26.1 pg (28.0-32.0); Mean Corpuscular Hgb Conc. 31.7 g/dL (32.0-36.0); Mean Corpuscular Volume 82.4 fL (80.0-100.0); Monocytes % (auto) 6.7 % (0.0-12.0); Neutrophils # (auto) 4.8 10 ^3/uL (1.6-8.6); Neutrophils % (auto) 63.3 % (37.0-80.0); Red Blood Cells 3.86 10^6/uL (4.0-5.20); Red Cell Distribution Width 16.6 % (11.8-14.3); White Blood Cell 7.5 10^3/uL (4.4-10.8)
[2023-07-30 13:07] LABS: Albumin 4.1 g/dL (3.2-4.8); Alkaline Phosphatase 79 U/L (46-116); Anion Gap 5.6 (5-15); Aspartate Aminotransferase 13 U/L (13-40); BUN/Creatinine Ratio 13.3 (10.0-20.0); Bilirubin, Total 0.3 mg/dL (0.2-1.0); Blood Urea Nitrogen 10 mg/dL (9-23); Calcium 9.1 mg/dL (8.5-10.1); Carbon Dioxide 28.4 mmol/L (20-30); Chloride 106 mmol/L (98-107); Glucose 138 mg/dL (74-106); Magnesium 1.8 mg/dL (1.6-2.6); Phosphorus 3.2 mg/dL (2.4-5.1); Potassium 3.8 mmol/L (3.5-5.1); Sodium 140 mmol/L (136-145); Total Protein 6.9 g/dL (5.7-8.2)
[2023-07-30 13:12] LABS: Alanine Aminotransferase < 9 U/L (7-40)
[2023-07-30 15:38] LABS: INR 1.04 (0.9-1.15); Partial Thromboplastin Time 25.5 SEC (24.5-34.5); Prothrombin Time 10.9 sec (9.3-11.8)
[2023-07-30] MEDS: AMINO ACID INFUSION IN D10W 1,000 ML IV NR (20:15)
[2023-07-30] MEDS: ACETAMINOPHEN 325 MG TAB PO PRN (23:43)
[2023-07-31] VITALS (15 sets, daily range): BP systolic 110–143; BP diastolic 44–76; PULSE 79–103; RESP 14–19; TEMP 97.9–98.8; O2SAT 91–99
[2023-07-31] MEDS: InsuLIN REG 1unit/0.01ml Soln (100units/ml) SC SCH ×4 (00:01→17:53)
[2023-07-31] MEDS: SODIUM CHLORIDE 0.9% 1,000 ML IV SCH ×2 (03:55→20:35)
[2023-07-31] MEDS: SODIUM CHLOR 0.9% PF (SALINE LOCK) 10ML VIAL/SYR IV SCH ×3 (05:51→21:22)
[2023-07-31] MEDS: metroNIDAZOLE 500MG/100ML 100 ML IV SCH ×2 (05:51→06:00)
[2023-07-31] MEDS: ACCU-CHEK COMFORT CURVE STRIP VI SCH ×3 (05:51→17:52)
[2023-07-31] MEDS ORDERED: BUPIVACAINE 0.25% INJ 50ML VIAL ONE (06:45)
[2023-07-31] MEDS ORDERED: LIDOCAINE 1%-Mpf/Epinephrine 1:200,000 30ml VIAL ONE (06:45)
[2023-07-31 07:12] LABS: Basophils # (auto) 0 10 ^3/uL (0-0.2); Eosinophils # (auto) 0.1 10 ^3/uL (0-0.8); Lymphocytes # (auto) 1.7 10 ^3/uL (0.4-5.4); Nucleated Red Blood Cells % 0.1 %
[2023-07-31] MEDS ORDERED: fentaNYL CITRATE 100 MCG/2 ML VL ONE (07:18)
[2023-07-31] MEDS ORDERED: MIDAZOLAM HCL 2MG/2ML 2ml VIAL (1mg/ml) ONE (07:18)
[2023-07-31] MEDS ORDERED: HYDROmorphone HCL 2 MG/ML VL/or syr ONE (07:18)
[2023-07-31 07:19] LABS: Basophils % (auto) 0.4 % (0.0-2.0); Eosinophils % (auto) 1.3 % (0.0-7.0); Hematocrit 31.1 % (36.0-46.0); Hemoglobin 9.9 g/dL (12.2-16.2); Lymphocytes % (auto) 30.6 % (10.0-50.0); Mean Corpuscular Hemoglobin 26.1 pg (28.0-32.0); Mean Corpuscular Hgb Conc. 31.7 g/dL (32.0-36.0); Mean Corpuscular Volume 82.2 fL (80.0-100.0); Monocytes # (auto) 0.5 10 ^3/uL (0-1.3); Monocytes % (auto) 8.5 % (0.0-12.0); Neutrophils # (auto) 3.2 10 ^3/uL (1.6-8.6); Neutrophils % (auto) 59.2 % (37.0-80.0); Red Blood Cells 3.79 10^6/uL (4.0-5.20); Red Cell Distribution Width 16.6 % (11.8-14.3); White Blood Cell 5.4 10^3/uL (4.4-10.8)
[2023-07-31] MEDS ORDERED: ePHEDrine SULFATE 50 MG/ML AMP ONE (07:19)
[2023-07-31] MEDS ORDERED: ROCURONIUM 10MG/ML 10ML VIAL IV ONE (07:19)
[2023-07-31] MEDS ORDERED: LIDOCAINE 2% (LOCAL ANESTH.) PF 5ml SDV ONE (07:19)
[2023-07-31] MEDS ORDERED: PROPOFOL 10 MG/ML 20 ML IV ONE (07:19)
[2023-07-31] MEDS ORDERED: PHENYLEPHRINE HCL 10 MG/ML VL ONE (07:19)
[2023-07-31] MEDS ORDERED: GLYCOPYRROLATE 0.2 MG/ML 1ML VIAL ONE (07:19)
[2023-07-31] MEDS ORDERED: DexAMETHasone SOD PHOS 10MG/1ML VIAL INJ ONE (07:19)
[2023-07-31] MEDS ORDERED: ceFAZolin 1GM/50ML 100 ML IV ONE (07:28)
[2023-07-31] MEDS ORDERED: ONDANSETRON HCL 4 MG/2 ML VIAL IV ONE (07:42)
[2023-07-31] MEDS ORDERED: IPRATROPIUM BROM 0.5 MG/2.5ML INH SOL NEB ONE (07:45)
[2023-07-31] MEDS ORDERED: ALBUTEROL SULF 2.5 MG/0.5ML(0.5%) NEB SOLN NEB ONE (07:45)
[2023-07-31 07:47] LABS: Anion Gap 6.7 (5-15); Carbon Dioxide 27.3 mmol/L (20-30); Potassium 4.1 mmol/L (3.5-5.1)
[2023-07-31 07:48] LABS: Calcium 9.1 mg/dL (8.5-10.1)
[2023-07-31 07:53] LABS: Albumin 3.9 g/dL (3.2-4.8); BUN/Creatinine Ratio 12.3 (10.0-20.0)
[2023-07-31 07:55] LABS: Phosphorus 4.4 mg/dL (2.4-5.1)
[2023-07-31] MEDS: PANTOPRAZOLE 40 MG/10 ML VIAL INJ IV SCH (10:00)
[2023-07-31] MEDS ORDERED: SUGAMMADEX 200mg/2ml Vial (100MG/ML) IV ONE (10:12)
[2023-07-31] MEDS ORDERED: ONDANSETRON HCL 4 MG/2 ML VIAL IV PRN (11:15)
[2023-07-31] MEDS ORDERED: HYDROmorphone HCL 2 MG/ML VL/or syr IV PRN (11:15)
[2023-07-31] MEDS ORDERED: ACCU-CHEK COMFORT CURVE STRIP VI ONE (11:15)
[2023-07-31] MEDS ORDERED: TPN PER PHARMACY 0 ML IV SCH (12:30)
[2023-07-31] MEDS ORDERED: PIPERACILLIN-TAZOB 3.375GM 100 ML IV ONE (12:30)
[2023-07-31] MEDS: ALBUTEROL SULF 2.5 MG/0.5ML(0.5%) NEB SOLN NEB PRN (14:13)
[2023-07-31] MEDS: IPRATROPIUM BROM 0.5 MG/2.5ML INH SOL NEB SCH (17:49)
[2023-07-31] MEDS: ALBUTEROL SULF 2.5 MG/0.5ML(0.5%) NEB SOLN NEB SCH (17:49)
[2023-07-31] MEDS: MORPHINE SULFATE INJ 2 MG/ml SYRG IV PRN ×2 (18:29→22:37)
[2023-07-31] MEDS: AMINO ACID INFUSION IN D10W 1,000 ML IV NR (21:22)
[2023-07-31] MEDS: PIPERACILLIN-TAZOB 3.375GM 100 ML IV SCH (21:30)
[2023-08-01] VITALS (11 sets, daily range): BP systolic 114–138; BP diastolic 51–70; PULSE 90–100; RESP 16–20; TEMP 98.3–98.8; O2SAT 90–100
[2023-08-01] MEDS: ACCU-CHEK COMFORT CURVE STRIP VI SCH ×4 (00:27→18:07)
[2023-08-01] MEDS: InsuLIN REG 1unit/0.01ml Soln (100units/ml) SC SCH ×4 (00:28→18:09)
[2023-08-01] MEDS: ALBUTEROL SULF 2.5 MG/0.5ML(0.5%) NEB SOLN NEB PRN (04:08)
[2023-08-01] MEDS: MORPHINE SULFATE INJ 2 MG/ml SYRG IV PRN ×5 (04:53→22:06)
[2023-08-01] MEDS: PIPERACILLIN-TAZOB 3.375GM 100 ML IV SCH ×3 (05:53→22:01)
[2023-08-01] MEDS: SODIUM CHLOR 0.9% PF (SALINE LOCK) 10ML VIAL/SYR IV SCH ×4 (05:58→22:04)
[2023-08-01 06:11] LABS: Basophils # (auto) 0 10 ^3/uL (0-0.2); Eosinophils # (auto) 0 10 ^3/uL (0-0.8); Hemoglobin 10.8 g/dL (12.2-16.2); Lymphocytes # (auto) 0.9 10 ^3/uL (0.4-5.4); Monocytes # (auto) 0.6 10 ^3/uL (0-1.3); White Blood Cell 9.9 10^3/uL (4.4-10.8)
[2023-08-01 06:17] LABS: Basophils % (auto) 0.1 % (0.0-2.0); Hematocrit 34.1 % (36.0-46.0); Lymphocytes % (auto) 9.1 % (10.0-50.0); Mean Corpuscular Hemoglobin 25.9 pg (28.0-32.0); Mean Corpuscular Hgb Conc. 31.6 g/dL (32.0-36.0); Mean Corpuscular Volume 81.8 fL (80.0-100.0); Monocytes % (auto) 6.2 % (0.0-12.0); Neutrophils # (auto) 8.4 10 ^3/uL (1.6-8.6); Neutrophils % (auto) 84.6 % (37.0-80.0); Red Blood Cells 4.17 10^6/uL (4.0-5.20); Red Cell Distribution Width 16.2 % (11.8-14.3)
[2023-08-01 06:29] LABS: Alanine Aminotransferase 11 U/L (7-40); Albumin 3.8 g/dL (3.2-4.8); Alkaline Phosphatase 71 U/L (46-116); Anion Gap 7.3 (5-15); BUN/Creatinine Ratio 8.3 (10.0-20.0); Bilirubin, Total 0.6 mg/dL (0.2-1.0); Blood Urea Nitrogen 5 mg/dL (9-23); Carbon Dioxide 26.7 mmol/L (20-30); Chloride 104 mmol/L (98-107); GFR African American 130 mL/min; GFR Non-African American 108 mL/min; Glucose 133 mg/dL (74-106); Magnesium 1.8 mg/dL (1.6-2.6); Potassium 3.9 mmol/L (3.5-5.1); Sodium 138 mmol/L (136-145)
[2023-08-01 06:30] LABS: Total Protein 6.6 g/dL (5.7-8.2)
[2023-08-01 07:14] LABS: Aspartate Aminotransferase 16 U/L (13-40); Phosphorus 3.3 mg/dL (2.4-5.1)
[2023-08-01] MEDS: ALBUTEROL SULF 2.5 MG/0.5ML(0.5%) NEB SOLN NEB SCH ×3 (07:25→18:00)
[2023-08-01] MEDS: IPRATROPIUM BROM 0.5 MG/2.5ML INH SOL NEB SCH ×3 (07:25→18:00)
[2023-08-01] MEDS: PANTOPRAZOLE 40 MG/10 ML VIAL INJ IV SCH (09:52)
[2023-08-01] MEDS: SODIUM CHLORIDE 0.9% 1,000 ML IV SCH (13:57)
[2023-08-01] MEDS ORDERED: LIDOCAINE 1% (LOCAL ANESTH.) PF 5ml SDV ID ONE (17:45)
[2023-08-01] MEDS ORDERED: PPN PER PHARMACY IV NR ×14 (20:00)
[2023-08-02] VITALS (14 sets, daily range): BP systolic 109–143; BP diastolic 43–87; PULSE 71–95; RESP 17–20; TEMP 98–98.9; O2SAT 90–99
[2023-08-02] MEDS: ACCU-CHEK COMFORT CURVE STRIP VI SCH ×5 (00:08→23:29)
[2023-08-02] MEDS: InsuLIN REG 1unit/0.01ml Soln (100units/ml) SC SCH ×5 (00:09→23:29)
[2023-08-02] MEDS: MORPHINE SULFATE INJ 2 MG/ml SYRG IV PRN ×6 (02:45→23:34)
[2023-08-02] MEDS: PIPERACILLIN-TAZOB 3.375GM 100 ML IV SCH ×3 (05:11→21:54)
[2023-08-02] MEDS: SODIUM CHLOR 0.9% PF (SALINE LOCK) 10ML VIAL/SYR IV SCH ×5 (05:11→21:54)
[2023-08-02 05:43] LABS: Alanine Aminotransferase 13 U/L (7-40); Alkaline Phosphatase 71 U/L (46-116); Anion Gap 5.1 (5-15); BUN/Creatinine Ratio 10.4 (10.0-20.0); Blood Urea Nitrogen 7 mg/dL (9-23); Calcium 8.9 mg/dL (8.7-10.4); Carbon Dioxide 28.9 mmol/L (20-30); Chloride 103 mmol/L (98-107); Glucose 133 mg/dL (74-106); Potassium 3.5 mmol/L (3.5-5.1); Sodium 137 mmol/L (136-145)
[2023-08-02 05:44] LABS: Magnesium 1.9 mg/dL (1.6-2.6)
[2023-08-02 05:45] LABS: Albumin 3.7 g/dL (3.2-4.8); Aspartate Aminotransferase 20 U/L (13-40); Bilirubin, Total 0.5 mg/dL (0.2-1.0); Phosphorus 3.1 mg/dL (2.4-5.1); Total Protein 6.3 g/dL (5.7-8.2)
[2023-08-02] MEDS: SODIUM CHLORIDE 0.9% 1,000 ML IV SCH ×2 (05:55→21:54)
[2023-08-02] MEDS: ALBUTEROL SULF 2.5 MG/0.5ML(0.5%) NEB SOLN NEB SCH ×3 (06:38→19:04)
[2023-08-02] MEDS: IPRATROPIUM BROM 0.5 MG/2.5ML INH SOL NEB SCH ×3 (06:38→19:04)
[2023-08-02] MEDS: PANTOPRAZOLE 40 MG/10 ML VIAL INJ IV SCH (09:57)
[2023-08-02] MEDS ORDERED: POTASSIUM CHL 20MEQ/100ML 100 ML IV ONE (10:00)
[2023-08-02] MEDS ORDERED: TPN PER PHARMACY IV NR ×8 (20:00)
[2023-08-03] VITALS (13 sets, daily range): BP systolic 111–125; BP diastolic 46–73; PULSE 80–94; RESP 16–20; TEMP 98.1–98.4; O2SAT 90–99
[2023-08-03] MEDS: MORPHINE SULFATE INJ 2 MG/ml SYRG IV PRN ×4 (04:25→20:34)
[2023-08-03] MEDS: SODIUM CHLOR 0.9% PF (SALINE LOCK) 10ML VIAL/SYR IV SCH ×5 (05:38→22:00)
[2023-08-03] MEDS: PIPERACILLIN-TAZOB 3.375GM 100 ML IV SCH ×3 (05:38→22:55)
[2023-08-03] MEDS: ACCU-CHEK COMFORT CURVE STRIP VI SCH ×4 (05:59→22:55)
[2023-08-03] MEDS: InsuLIN REG 1unit/0.01ml Soln (100units/ml) SC SCH ×4 (05:59→23:02)
[2023-08-03] MEDS: IPRATROPIUM BROM 0.5 MG/2.5ML INH SOL NEB SCH ×3 (06:52→20:33)
[2023-08-03] MEDS: ALBUTEROL SULF 2.5 MG/0.5ML(0.5%) NEB SOLN NEB SCH ×3 (06:52→20:33)
[2023-08-03 08:34] LABS: Eosinophils # (auto) 0.1 10 ^3/uL (0-0.8); Hemoglobin 9.9 g/dL (12.2-16.2); Lymphocytes # (auto) 1.1 10 ^3/uL (0.4-5.4); Mean Corpuscular Hemoglobin 26.9 pg (28.0-32.0); Monocytes # (auto) 0.4 10 ^3/uL (0-1.3); Neutrophils # (auto) 5.2 10 ^3/uL (1.6-8.6); Red Blood Cells 3.69 10^6/uL (4.0-5.20); Red Cell Distribution Width 16.4 % (11.8-14.3)
[2023-08-03 08:36] LABS: Basophils # (auto) 0 10 ^3/uL (0-0.2); Basophils % (auto) 0.7 % (0.0-2.0); Eosinophils % (auto) 1.9 % (0.0-7.0); Hematocrit 30.9 % (36.0-46.0); Lymphocytes % (auto) 16.3 % (10.0-50.0); Mean Corpuscular Hgb Conc. 32.1 g/dL (32.0-36.0); Mean Corpuscular Volume 83.7 fL (80.0-100.0); Neutrophils % (auto) 75.1 % (37.0-80.0); Nucleated Red Blood Cells % 0.1 %
[2023-08-03] MEDS: PANTOPRAZOLE 40 MG/10 ML VIAL INJ IV SCH (09:35)
[2023-08-03] MEDS ORDERED: FLUTICASONE PROP NASAL SPR 0.05 % (50MCG) 16GM EACHNOSTRI ONE (10:45)
[2023-08-03 12:43] LABS: Chloride 105 mmol/L (98-107); Potassium 3.9 mmol/L (3.5-5.1); Sodium 136 mmol/L (136-145)
[2023-08-03 12:45] LABS: Anion Gap 8.2 (5-15); Carbon Dioxide 22.8 mmol/L (20-30)
[2023-08-03 12:46] LABS: Calcium 9.7 mg/dL (8.5-10.1)
[2023-08-03 12:50] LABS: Glucose 100 mg/dL (74-106)
[2023-08-03 12:51] LABS: Alkaline Phosphatase 50 U/L (46-116); BUN/Creatinine Ratio 18.3 (10.0-20.0); Blood Urea Nitrogen 15 mg/dL (9-23); Magnesium 1.9 mg/dL (1.6-2.6)
[2023-08-03 12:52] LABS: Alanine Aminotransferase 13 U/L (7-40); Albumin 5.1 g/dL (3.2-4.8)
[2023-08-03 12:53] LABS: Bilirubin, Total 1.1 mg/dL (0.2-1.0); Total Protein 8.4 g/dL (5.7-8.2)
[2023-08-03 12:55] LABS: Aspartate Aminotransferase 17 U/L (13-40)
[2023-08-03] MEDS ORDERED: IOHEXOL 350 MG/ML 100ML IJ ONE (14:58)
[2023-08-03] MEDS: SODIUM CHLORIDE 0.9% 1,000 ML IV SCH (17:25)
[2023-08-03] MEDS ORDERED: [UNRECOGNIZED DRUG - OTHER] IV NR ×8 (20:00)
[2023-08-03] MEDS ORDERED: SODIUM PHOSPHATES IV NR ×8 (20:00)
[2023-08-03] MEDS ORDERED: FAT EMULSION IV NR ×8 (20:00)
[2023-08-03] MEDS ORDERED: POTASSIUM ACETATE IV NR ×8 (20:00)
[2023-08-04] VITALS (16 sets, daily range): BP systolic 95–125; BP diastolic 46–74; PULSE 55–93; RESP 14–21; TEMP 97.7–98.9; O2SAT 90–100
[2023-08-04] MEDS: MORPHINE SULFATE INJ 2 MG/ml SYRG IV PRN ×5 (01:44→23:40)
[2023-08-04] MEDS: ALBUTEROL SULF 2.5 MG/0.5ML(0.5%) NEB SOLN NEB PRN (01:45)
[2023-08-04] MEDS: ACCU-CHEK COMFORT CURVE STRIP VI SCH ×4 (06:09→23:42)
[2023-08-04] MEDS: PIPERACILLIN-TAZOB 3.375GM 100 ML IV SCH ×3 (06:09→22:18)
[2023-08-04] MEDS: SODIUM CHLOR 0.9% PF (SALINE LOCK) 10ML VIAL/SYR IV SCH ×5 (06:09→22:18)
[2023-08-04] MEDS: InsuLIN REG 1unit/0.01ml Soln (100units/ml) SC SCH ×4 (06:28→23:43)
[2023-08-04] MEDS: IPRATROPIUM BROM 0.5 MG/2.5ML INH SOL NEB SCH ×3 (06:33→19:03)
[2023-08-04] MEDS: ALBUTEROL SULF 2.5 MG/0.5ML(0.5%) NEB SOLN NEB SCH ×3 (06:33→19:03)
[2023-08-04 07:09] LABS: Albumin 3.6 g/dL (3.2-4.8); Alkaline Phosphatase 56 U/L (46-116); Anion Gap 5.5 (5-15); Aspartate Aminotransferase 14 U/L (13-40); BUN/Creatinine Ratio 19.6 (10.0-20.0); Bilirubin, Total 0.4 mg/dL (0.2-1.0); Blood Urea Nitrogen 10 mg/dL (9-23); Calcium 8.7 mg/dL (8.5-10.1); Carbon Dioxide 28.5 mmol/L (20-30); Chloride 106 mmol/L (98-107); Glucose 151 mg/dL (74-106); Magnesium 1.7 mg/dL (1.6-2.6); Phosphorus 3.9 mg/dL (2.4-5.1); Potassium 3.5 mmol/L (3.5-5.1); Sodium 140 mmol/L (136-145); Total Protein 6.2 g/dL (5.7-8.2)
[2023-08-04 07:17] LABS: Alanine Aminotransferase < 9 U/L (7-40)
[2023-08-04 07:27] LABS: Basophils # (auto) 0 10 ^3/uL (0-0.2); Basophils % (auto) 0.4 % (0.0-2.0); Eosinophils # (auto) 0.2 10 ^3/uL (0-0.8)
[2023-08-04 07:30] LABS: Eosinophils % (auto) 2.7 % (0.0-7.0); Hematocrit 30.5 % (36.0-46.0); Hemoglobin 9.6 g/dL (12.2-16.2); Lymphocytes # (auto) 1.2 10 ^3/uL (0.4-5.4); Lymphocytes % (auto) 20.7 % (10.0-50.0); Mean Corpuscular Hgb Conc. 31.5 g/dL (32.0-36.0); Mean Corpuscular Volume 82.6 fL (80.0-100.0); Monocytes # (auto) 0.4 10 ^3/uL (0-1.3); Monocytes % (auto) 7.3 % (0.0-12.0); Neutrophils # (auto) 3.9 10 ^3/uL (1.6-8.6); Neutrophils % (auto) 68.9 % (37.0-80.0); Nucleated Red Blood Cells % 0.1 %; Red Blood Cells 3.69 10^6/uL (4.0-5.20); Red Cell Distribution Width 15.9 % (11.8-14.3); White Blood Cell 5.7 10^3/uL (4.4-10.8)
[2023-08-04] MEDS: SODIUM CHLORIDE 0.9% 1,000 ML IV SCH (07:55)
[2023-08-04] MEDS: PANTOPRAZOLE 40 MG/10 ML VIAL INJ IV SCH (08:30)
[2023-08-04] MEDS: MAGNESIUM SULFATE 1GM/100ML 100 ML IV SCH ×2 (12:00→13:30)
[2023-08-04] MEDS ORDERED: MAGNESIUM SULFATE 1GM/100ML 100 ML IV ONE (18:30)
[2023-08-04] MEDS ORDERED: TPN PER PHARMACY IV NR ×9 (20:00)
[2023-08-05] VITALS (16 sets, daily range): BP systolic 107–135; BP diastolic 48–77; PULSE 76–94; RESP 16–20; TEMP 97.8–98.4; O2SAT 92–100
[2023-08-05] MEDS: SODIUM CHLORIDE 0.9% 1,000 ML IV SCH (00:52)
[2023-08-05] MEDS: ALBUTEROL SULF 2.5 MG/0.5ML(0.5%) NEB SOLN NEB PRN (03:52)
[2023-08-05] MEDS: MORPHINE SULFATE INJ 2 MG/ml SYRG IV PRN ×4 (04:36→23:31)
[2023-08-05] MEDS: ACCU-CHEK COMFORT CURVE STRIP VI SCH ×4 (05:58→23:32)
[2023-08-05] MEDS: InsuLIN REG 1unit/0.01ml Soln (100units/ml) SC SCH ×4 (06:00→23:32)
[2023-08-05] MEDS: PIPERACILLIN-TAZOB 3.375GM 100 ML IV SCH ×3 (06:01→21:07)
[2023-08-05] MEDS: SODIUM CHLOR 0.9% PF (SALINE LOCK) 10ML VIAL/SYR IV SCH ×5 (06:01→21:08)
[2023-08-05 06:14] LABS: Basophils # (auto) 0 10 ^3/uL (0-0.2); Basophils % (auto) 0.5 % (0.0-2.0); Eosinophils # (auto) 0.1 10 ^3/uL (0-0.8); Hemoglobin 10.1 g/dL (12.2-16.2); Neutrophils # (auto) 3.4 10 ^3/uL (1.6-8.6)
[2023-08-05 06:17] LABS: Eosinophils % (auto) 2.6 % (0.0-7.0); Hematocrit 31.4 % (36.0-46.0); Lymphocytes # (auto) 0.9 10 ^3/uL (0.4-5.4); Lymphocytes % (auto) 18.9 % (10.0-50.0); Mean Corpuscular Hemoglobin 26.3 pg (28.0-32.0); Mean Corpuscular Hgb Conc. 32.1 g/dL (32.0-36.0); Mean Corpuscular Volume 81.8 fL (80.0-100.0); Monocytes # (auto) 0.4 10 ^3/uL (0-1.3); Nucleated Red Blood Cells % 0.1 %; Red Blood Cells 3.84 10^6/uL (4.0-5.20); Red Cell Distribution Width 16.2 % (11.8-14.3)
[2023-08-05 06:23] LABS: Alanine Aminotransferase 12 U/L (7-40); Albumin 3.6 g/dL (3.2-4.8); Alkaline Phosphatase 61 U/L (46-116); Aspartate Aminotransferase 13 U/L (13-40); BUN/Creatinine Ratio 17.7 (10.0-20.0); Bilirubin, Total 0.5 mg/dL (0.2-1.0); Blood Urea Nitrogen 11 mg/dL (9-23); Calcium 8.7 mg/dL (8.5-10.1); Chloride 104 mmol/L (98-107); Glucose 139 mg/dL (74-106); Magnesium 1.9 mg/dL (1.6-2.6); Phosphorus 3.6 mg/dL (2.4-5.1); Potassium 3.4 mmol/L (3.5-5.1); Sodium 138 mmol/L (136-145); Total Protein 6.2 g/dL (5.7-8.2)
[2023-08-05 06:54] LABS: Anion Gap 6.1 (5-15); Carbon Dioxide 27.9 mmol/L (20-30)
[2023-08-05] MEDS ORDERED: POTASSIUM CHL 20 Meq TABLET PO ONE (07:00)
[2023-08-05] MEDS: ALBUTEROL SULF 2.5 MG/0.5ML(0.5%) NEB SOLN NEB SCH ×3 (07:14→19:02)
[2023-08-05] MEDS: IPRATROPIUM BROM 0.5 MG/2.5ML INH SOL NEB SCH ×3 (07:14→19:02)
[2023-08-05] MEDS: PANTOPRAZOLE 40 MG/10 ML VIAL INJ IV SCH (10:07)
[2023-08-05] MEDS ORDERED: POTASSIUM CHL 20MEQ/100ML 100 ML IV ONE (18:00)
[2023-08-05] MEDS ORDERED: TPN PER PHARMACY IV NR ×10 (20:00)
[2023-08-06] VITALS (11 sets, daily range): BP systolic 104–119; BP diastolic 53–67; PULSE 80–101; RESP 17–20; TEMP 97.7–98.9; O2SAT 92–100
[2023-08-06] MEDS: MORPHINE SULFATE INJ 2 MG/ml SYRG IV PRN ×5 (03:59→22:37)
[2023-08-06] MEDS: ACCU-CHEK COMFORT CURVE STRIP VI SCH ×4 (05:07→23:38)
[2023-08-06] MEDS: PIPERACILLIN-TAZOB 3.375GM 100 ML IV SCH ×3 (05:07→21:22)
[2023-08-06] MEDS: InsuLIN REG 1unit/0.01ml Soln (100units/ml) SC SCH ×4 (05:25→23:38)
[2023-08-06] MEDS: SODIUM CHLOR 0.9% PF (SALINE LOCK) 10ML VIAL/SYR IV SCH ×5 (05:27→21:22)
[2023-08-06 06:36] LABS: Basophils # (auto) 0 10 ^3/uL (0-0.2); Basophils % (auto) 0.4 % (0.0-2.0); Eosinophils # (auto) 0.1 10 ^3/uL (0-0.8); Eosinophils % (auto) 1.8 % (0.0-7.0); Hemoglobin 10.1 g/dL (12.2-16.2); Lymphocytes # (auto) 0.9 10 ^3/uL (0.4-5.4); Monocytes # (auto) 0.4 10 ^3/uL (0-1.3); Red Blood Cells 3.87 10^6/uL (4.0-5.20); White Blood Cell 5.4 10^3/uL (4.4-10.8)
[2023-08-06 06:38] LABS: Hematocrit 31.9 % (36.0-46.0); Mean Corpuscular Hemoglobin 26.2 pg (28.0-32.0); Mean Corpuscular Hgb Conc. 31.8 g/dL (32.0-36.0); Mean Corpuscular Volume 82.5 fL (80.0-100.0); Monocytes % (auto) 7.9 % (0.0-12.0); Neutrophils % (auto) 72.9 % (37.0-80.0); Nucleated Red Blood Cells % 0.2 %; Red Cell Distribution Width 16.1 % (11.8-14.3)
[2023-08-06 06:55] LABS: Alanine Aminotransferase 32 U/L (7-40); Albumin 3.7 g/dL (3.2-4.8); Alkaline Phosphatase 71 U/L (46-116); Anion Gap 3.4 (5-15); Aspartate Aminotransferase 38 U/L (13-40); Blood Urea Nitrogen 11 mg/dL (9-23); Calcium 8.6 mg/dL (8.5-10.1); Carbon Dioxide 28.6 mmol/L (20-30); Chloride 105 mmol/L (98-107); Glucose 148 mg/dL (74-106); Phosphorus 3.1 mg/dL (2.4-5.1); Potassium 4.1 mmol/L (3.5-5.1); Sodium 137 mmol/L (136-145)
[2023-08-06 06:56] LABS: Bilirubin, Total 0.5 mg/dL (0.2-1.0); Total Protein 6.3 g/dL (5.7-8.2)
[2023-08-06] MEDS: IPRATROPIUM BROM 0.5 MG/2.5ML INH SOL NEB SCH ×4 (07:41→19:36)
[2023-08-06] MEDS: ALBUTEROL SULF 2.5 MG/0.5ML(0.5%) NEB SOLN NEB SCH ×4 (07:42→19:36)
[2023-08-06] MEDS: PANTOPRAZOLE 40 MG/10 ML VIAL INJ IV SCH (10:39)
[2023-08-06] MEDS ORDERED: TPN PER PHARMACY IV NR ×11 (20:00)
[2023-08-07] VITALS (12 sets, daily range): BP systolic 100–148; BP diastolic 53–70; PULSE 80–98; RESP 16–19; TEMP 97.6–98.6; O2SAT 95–100
[2023-08-07] MEDS: MORPHINE SULFATE INJ 2 MG/ml SYRG IV PRN ×4 (02:41→23:41)
[2023-08-07] MEDS: SODIUM CHLOR 0.9% PF (SALINE LOCK) 10ML VIAL/SYR IV SCH ×5 (05:02→22:11)
[2023-08-07] MEDS: PIPERACILLIN-TAZOB 3.375GM 100 ML IV SCH (05:02)
[2023-08-07] MEDS: ACCU-CHEK COMFORT CURVE STRIP VI SCH ×4 (05:12→23:15)
[2023-08-07] MEDS: InsuLIN REG 1unit/0.01ml Soln (100units/ml) SC SCH ×4 (05:13→23:15)
[2023-08-07 06:49] LABS: Basophils # (auto) 0 10 ^3/uL (0-0.2); Basophils % (auto) 0.4 % (0.0-2.0); Lymphocytes # (auto) 1.2 10 ^3/uL (0.4-5.4); Monocytes # (auto) 0.4 10 ^3/uL (0-1.3); Red Cell Distribution Width 16.2 % (11.8-14.3)
[2023-08-07 06:52] LABS: Eosinophils # (auto) 0.2 10 ^3/uL (0-0.8); Eosinophils % (auto) 2.8 % (0.0-7.0); Hematocrit 32.1 % (36.0-46.0); Hemoglobin 10.2 g/dL (12.2-16.2); Lymphocytes % (auto) 23.3 % (10.0-50.0); Mean Corpuscular Hgb Conc. 31.7 g/dL (32.0-36.0); Mean Corpuscular Volume 82.1 fL (80.0-100.0); Neutrophils # (auto) 3.5 10 ^3/uL (1.6-8.6); Neutrophils % (auto) 65.5 % (37.0-80.0); Red Blood Cells 3.92 10^6/uL (4.0-5.20); White Blood Cell 5.3 10^3/uL (4.4-10.8)
[2023-08-07 07:02] LABS: Alanine Aminotransferase 49 U/L (7-40); Albumin 3.8 g/dL (3.2-4.8); Alkaline Phosphatase 85 U/L (46-116); Aspartate Aminotransferase 36 U/L (13-40); BUN/Creatinine Ratio 12.5 (10.0-20.0); Blood Urea Nitrogen 8 mg/dL (9-23); Calcium 9.1 mg/dL (8.5-10.1); Chloride 106 mmol/L (98-107); Glucose 117 mg/dL (74-106); Phosphorus 4.1 mg/dL (2.4-5.1); Potassium 4.1 mmol/L (3.5-5.1); Sodium 138 mmol/L (136-145)
[2023-08-07 07:03] LABS: Bilirubin, Total 0.5 mg/dL (0.2-1.0); Total Protein 6.4 g/dL (5.7-8.2)
[2023-08-07 07:29] LABS: Anion Gap 5 (5-15); Carbon Dioxide 27 mmol/L (20-30)
[2023-08-07] MEDS: ALBUTEROL SULF 2.5 MG/0.5ML(0.5%) NEB SOLN NEB SCH ×3 (07:29→18:00)
[2023-08-07] MEDS: IPRATROPIUM BROM 0.5 MG/2.5ML INH SOL NEB SCH ×3 (07:29→18:00)
[2023-08-07] MEDS: PANTOPRAZOLE 40 MG/10 ML VIAL INJ IV SCH (10:06)
[2023-08-07] MEDS: metroNIDAZOLE 500 MG TAB PO SCH ×2 (12:39→20:00)
[2023-08-07] MEDS: levoFLOXacin 500 MG TAB PO SCH (12:39)
[2023-08-08] VITALS (10 sets, daily range): BP systolic 91–130; BP diastolic 52–60; PULSE 76–105; RESP 16–19; TEMP 36.9; O2SAT 90–100
[2023-08-08] MEDS: metroNIDAZOLE 500 MG TAB PO SCH ×2 (05:04→17:14)
[2023-08-08] MEDS: SODIUM CHLOR 0.9% PF (SALINE LOCK) 10ML VIAL/SYR IV SCH ×3 (05:04→17:15)
[2023-08-08] MEDS: ACCU-CHEK COMFORT CURVE STRIP VI SCH ×2 (05:04→12:37)
[2023-08-08] MEDS: InsuLIN REG 1unit/0.01ml Soln (100units/ml) SC SCH ×2 (05:11→12:38)
[2023-08-08 06:32] LABS: Anion Gap 4 (5-15); Carbon Dioxide 28 mmol/L (20-30); Chloride 105 mmol/L (98-107); Potassium 3.9 mmol/L (3.5-5.1); Sodium 137 mmol/L (136-145)
[2023-08-08 06:33] LABS: Calcium 9.1 mg/dL (8.7-10.4)
[2023-08-08 06:38] LABS: BUN/Creatinine Ratio 12.9 (10.0-20.0); Blood Urea Nitrogen 8 mg/dL (9-23); Glucose 114 mg/dL (74-106)
[2023-08-08] MEDS: IPRATROPIUM BROM 0.5 MG/2.5ML INH SOL NEB SCH ×3 (06:50→18:24)
[2023-08-08] MEDS: ALBUTEROL SULF 2.5 MG/0.5ML(0.5%) NEB SOLN NEB SCH ×3 (06:50→18:24)
[2023-08-08 08:07] LABS: Basophils # (auto) 0 10 ^3/uL (0-0.2); Basophils % (auto) 0.6 % (0.0-2.0); Hemoglobin 9.9 g/dL (12.2-16.2); Lymphocytes # (auto) 1.3 10 ^3/uL (0.4-5.4); Red Cell Distribution Width 16.3 % (11.8-14.3); White Blood Cell 5.1 10^3/uL (4.4-10.8)
[2023-08-08 08:09] LABS: Eosinophils # (auto) 0.2 10 ^3/uL (0-0.8); Eosinophils % (auto) 3.1 % (0.0-7.0); Hematocrit 31.6 % (36.0-46.0); Lymphocytes % (auto) 25.3 % (10.0-50.0); Mean Corpuscular Hemoglobin 25.7 pg (28.0-32.0); Mean Corpuscular Hgb Conc. 31.3 g/dL (32.0-36.0); Mean Corpuscular Volume 82.2 fL (80.0-100.0); Monocytes # (auto) 0.5 10 ^3/uL (0-1.3); Monocytes % (auto) 9.1 % (0.0-12.0); Neutrophils # (auto) 3.2 10 ^3/uL (1.6-8.6); Neutrophils % (auto) 61.9 % (37.0-80.0); Nucleated Red Blood Cells % 0.2 %; Red Blood Cells 3.84 10^6/uL (4.0-5.20)
[2023-08-08] MEDS ORDERED: PANTOPRAZOLE 40 MG TAB PO SCH (10:00)
[2023-08-08] MEDS: levoFLOXacin 500 MG TAB PO SCH (10:22)
== END 2023-08-08 18:50 | DRG 231 ==
LOC: ER 16:18 → OVERFLOW 19:56 → WEST WING 07-25 14:31 → TELE-WESTW 07-26 01:26 → WEST WING 08-05 22:20
PROVIDERS: ADMIT Internal Medicine
PROC: 0DBK8ZX Excision of Ascending Colon, Via Natural or Artificial Opening Endoscopic, Diagnostic (ICD-10-PCS; 2023-07-28)
PROC: 0DBN8ZZ Excision of Sigmoid Colon, Via Natural or Artificial Opening Endoscopic (ICD-10-PCS; 2023-07-28)
PROC: 0DTF0ZZ Resection of Right Large Intestine, Open Approach (ICD-10-PCS; 2023-07-31)
PROC: 30233N1 Transfusion of Nonautologous Red Blood Cells into Peripheral Vein, Percutaneous Approach (ICD-10-PCS; 2023-07-31)
PROC: 0D9670Z Drainage of Stomach with Drainage Device, Via Natural or Artificial Opening (ICD-10-PCS; 2023-07-31)
PROC: 0D1L0Z4 Bypass Transverse Colon to Cutaneous, Open Approach (ICD-10-PCS; principal; 2023-07-31 08:09)
PROC: 02HV33Z Insertion of Infusion Device into Superior Vena Cava, Percutaneous Approach (ICD-10-PCS; 2023-08-01)
PROC: B548ZZA Ultrasonography of Superior Vena Cava, Guidance (ICD-10-PCS; 2023-08-01)
DX: C18.2 Malignant neoplasm of ascending colon (principal); K57.31 Diverticulosis of large intestine without perforation or abscess with bleeding; D64.9 Anemia, unspecified; E11.9 Type 2 diabetes mellitus without complications; E66.01 Morbid (severe) obesity due to excess calories; E78.5 Hyperlipidemia, unspecified; F17.210 Nicotine dependence, cigarettes, uncomplicated; E87.6 Hypokalemia; I25.10 Atherosclerotic heart disease of native coronary artery without angina pectoris; K64.8 Other hemorrhoids; I10 Essential (primary) hypertension; J44.9 Chronic obstructive pulmonary disease, unspecified; K63.5 Polyp of colon; Z68.38 Body mass index [BMI] 38.0-38.9, adult; Z74.01 Bed confinement status; Z82.49 Family history of ischemic heart disease and other diseases of the circulatory system; Z83.3 Family history of diabetes mellitus; Z85.3 Personal history of malignant neoplasm of breast; Z87.11 Personal history of peptic ulcer disease; Z91.199 Patient's noncompliance with other medical treatment and regimen due to unspecified reason
CPT/HCPCS: 36415; 36569; 71045; 71260; 74176; 74177; 80048; 80053; 80061; 80069; 80307; 81001; 82270; 82378; 82962; 83036; 83735; 84100; 84443; 84478; 84484; 85025; 85610; 85730; 86850; 86900; 86901; 86920; 93005; 93306; 94640; 97110; 97116; 97163; 97530; C9113; G0378; J0690; J1100; J1815; J2001; J2250; J2405; J2543; J2704; J3480; J3490

== ENCOUNTER 2023-08-18 05:34 | Emergency (ER) | payer MEDICAID ==
[~2023-08-18] VITALS: Ht 172.7 cm; Wt 113.6 kg
[~2023-08-18 05:34] MED LIST changes: -METO25TA5 PO
[2023-08-18 06:33] LABS: Basophils # (auto) 0 10 ^3/uL (0-0.2); Basophils % (auto) 0.7 % (0.0-2.0); Eosinophils # (auto) 0.1 10 ^3/uL (0-0.8); Eosinophils % (auto) 3.9 % (0.0-7.0); Hemoglobin 10.3 g/dL (12.2-16.2); Lymphocytes # (auto) 0.9 10 ^3/uL (0.4-5.4); Lymphocytes % (auto) 27.9 % (10.0-50.0); Mean Corpuscular Hemoglobin 26.1 pg (28.0-32.0); Mean Corpuscular Hgb Conc. 32.2 g/dL (32.0-36.0); Monocytes # (auto) 0.3 10 ^3/uL (0-1.3); Monocytes % (auto) 8.9 % (0.0-12.0); Neutrophils # (auto) 1.9 10 ^3/uL (1.6-8.6); Neutrophils % (auto) 58.6 % (37.0-80.0); Nucleated Red Blood Cells % 0.1 %; Red Blood Cells 3.96 10^6/uL (4.0-5.20); Red Cell Distribution Width 16.9 % (11.8-14.3); White Blood Cell 3.2 10^3/uL (4.4-10.8)
[2023-08-18 06:42] LABS: INR 0.95 (0.9-1.15); Partial Thromboplastin Time 27.7 SEC (24.5-34.5)
[2023-08-18 06:53] LABS: Alanine Aminotransferase 18 U/L (7-40); Albumin 3.8 g/dL (3.2-4.8); Alkaline Phosphatase 81 U/L (46-116); Anion Gap 6 (5-15); Aspartate Aminotransferase 20 U/L (13-40); BUN/Creatinine Ratio 9.1 (10.0-20.0); Bilirubin, Total 0.3 mg/dL (0.2-1.0); Blood Urea Nitrogen 6 mg/dL (9-23); Calcium 9.1 mg/dL (8.7-10.4); Carbon Dioxide 27 mmol/L (20-30); Chloride 105 mmol/L (98-107); Glucose 126 mg/dL (74-106); Magnesium 1.7 mg/dL (1.6-2.6); Sodium 138 mmol/L (136-145); Total Protein 6.9 g/dL (5.7-8.2)
[2023-08-18 08:13] LABS: Urine Bacteria NONE SEEN /hpf (None Seen); Urine Blood Negative /uL (Negative); Urine Clarity Clear (Clear); Urine Color Yellow (Yellow); Urine Mucus FEW (None Seen); Urine Protein, UAD TRACE (Negative); Urine Specific Gravity 1.023 (1.001-1.035); Urine Urobilinogen Normal (Negative); Urine WBC 1 /hpf (0 - 5)
[2023-08-18 09:24] VITALS: BP 112/58; PULSE 61; RESP 17; TEMP 97.9; O2SAT 95
== END 2023-08-18 09:27 | disposition home or self-care (01) ==
LOC: ER 05:34
DX: F41.9 Anxiety disorder, unspecified (principal); J44.9 Chronic obstructive pulmonary disease, unspecified; I25.10 Atherosclerotic heart disease of native coronary artery without angina pectoris; E11.9 Type 2 diabetes mellitus without complications; E78.5 Hyperlipidemia, unspecified; I10 Essential (primary) hypertension; F17.210 Nicotine dependence, cigarettes, uncomplicated; Z79.2 Long term (current) use of antibiotics; Z79.899 Other long term (current) drug therapy
CPT/HCPCS: 36415; 71045; 74176; 80053; 81001; 83735; 83880; 84484; 85025; 85610; 85730; 93005

== ENCOUNTER 2024-02-22 07:44 | Inpatient (IN) | payer MEDICAID ==
[~2024-02-22] VITALS: Ht 172.7 cm; Wt 124.9 kg
[~2024-02-22 07:44] MED LIST changes: -ATO40T PO; +ATOR-507 PO
[2024-02-22 08:47] LABS: Basophils # (auto) 0 10 ^3/uL (0-0.2); Eosinophils # (auto) 0.1 10 ^3/uL (0-0.8); Eosinophils % (auto) 1.2 % (0.0-7.0); Hemoglobin 14.6 g/dL (12.2-16.2); Mean Corpuscular Hgb Conc. 32.7 g/dL (32.0-36.0); Red Cell Distribution Width 14.3 % (11.8-14.3); White Blood Cell 5.7 10^3/uL (4.4-10.8)
[2024-02-22 08:49] LABS: Basophils % (auto) 0.7 % (0.0-2.0); Hematocrit 44.7 % (36.0-46.0); Lymphocytes # (auto) 1.4 10 ^3/uL (0.4-5.4); Lymphocytes % (auto) 23.7 % (10.0-50.0); Mean Corpuscular Hemoglobin 34.4 pg (28.0-32.0); Mean Corpuscular Volume 105.3 fL (80.0-100.0); Monocytes # (auto) 0.5 10 ^3/uL (0-1.3); Monocytes % (auto) 8.1 % (0.0-12.0); Neutrophils # (auto) 3.8 10 ^3/uL (1.6-8.6); Neutrophils % (auto) 66.3 % (37.0-80.0); Nucleated Red Blood Cells % 0.1 %; Red Blood Cells 4.25 10^6/uL (4.0-5.20)
[2024-02-22] MEDS: ONDANSETRON HCL 4 MG/2 ML VIAL IV ONE (08:58)
[2024-02-22] MEDS: SODIUM CHLORIDE 0.9% 1,000 ML IV ONE (08:59)
[2024-02-22 09:06] LABS: Alanine Aminotransferase 23 U/L (7-40); Albumin 4.3 g/dL (3.2-4.8); Alkaline Phosphatase 92 U/L (46-116); Anion Gap 6 (5-15); Aspartate Aminotransferase 23 U/L (13-40); BUN/Creatinine Ratio 19.7 (10.0-20.0); Bilirubin, Total 0.7 mg/dL (0.2-1.0); Blood Urea Nitrogen 14 mg/dL (9-23); Calcium 9.6 mg/dL (8.7-10.4); Carbon Dioxide 25 mmol/L (20-30); Chloride 108 mmol/L (98-107); Glucose 109 mg/dL (74-106); Lipase 55 U/L (12-53); Potassium 4.4 mmol/L (3.5-5.1); Sodium 139 mmol/L (136-145); Total Protein 6.9 g/dL (5.7-8.2)
[2024-02-22] MEDS: ASPirin-EC 325mg tab PO ONE (11:52)
[2024-02-22] MEDS ORDERED: MORPHINE SULFATE 4 MG/ML SYR/VIAL IV PRN (12:45)
[2024-02-22] MEDS ORDERED: ONDANSETRON HCL 4 MG/2 ML VIAL IV PRN (12:45)
[2024-02-22] MEDS ORDERED: ACETAMINOPHEN 325 MG TAB PO PRN (12:45)
[2024-02-22] MEDS ORDERED: NITROGLYCERIN 0.4 MG SL TAB SL PRN (12:45)
[2024-02-22] MEDS: DICYCLOMINE HCL (10MG/ML) 2 ML AMPULE IM ONE (13:35)
[2024-02-22] MEDS: SODIUM CHLORIDE 0.9% 1,000 ML IV SCH (13:39)
[2024-02-22 13:44] LABS: INR 0.97 (0.9-1.15); Prothrombin Time 10.2 sec (9.3-11.8)
[2024-02-22 14:18] VITALS: PULSE 74; RESP 20; O2SAT 92
[2024-02-22] MEDS: IPRATROPIUM BROM 0.5 MG/2.5ML INH SOL NEB ONE (14:18)
[2024-02-22] MEDS: ALBUTEROL SULF 2.5 MG/0.5ML(0.5%) NEB SOLN NEB ONE (14:18)
[2024-02-22 14:24] VITALS: PULSE 74; PULSE 76; RESP 20; O2SAT 92; O2SAT 99
[2024-02-22 14:28] VITALS: BP 107/53; PULSE 74; RESP 20; TEMP 98.1; O2SAT 92
[2024-02-22 19:30] VITALS: O2SAT 92
[2024-02-22] MEDS: DICYCLOMINE HCL 10 MG CAP PO SCH (19:49)
[2024-02-22] MEDS: ATORVASTATIN 20 MG TAB PO SCH (22:49)
[2024-02-22] MEDS: CARVEDILOL 3.125 MG TAB PO SCH (22:51)
[2024-02-22] MEDS ORDERED: CLOP75TA70 PO (22:58)
[2024-02-22] MEDS ORDERED: ALBUAER3 IN (22:58)
[2024-02-22 23:00] VITALS: BP 115/53; PULSE 79; RESP 20
[2024-02-23] VITALS (20 sets, daily range): BP systolic 108–135; BP diastolic 45–73; PULSE 70–89; RESP 18–20; TEMP 97.8–98.8; O2SAT 91–100
[2024-02-23 05:47] LABS: Basophils # (auto) 0 10 ^3/uL (0-0.2); Basophils % (auto) 0.5 % (0.0-2.0); Eosinophils # (auto) 0.1 10 ^3/uL (0-0.8); Lymphocytes # (auto) 1.5 10 ^3/uL (0.4-5.4); Monocytes # (auto) 0.4 10 ^3/uL (0-1.3); White Blood Cell 4.9 10^3/uL (4.4-10.8)
[2024-02-23 05:49] LABS: Eosinophils % (auto) 1.2 % (0.0-7.0); Hematocrit 38.3 % (36.0-46.0); Lymphocytes % (auto) 30.8 % (10.0-50.0); Mean Corpuscular Hemoglobin 35.5 pg (28.0-32.0); Mean Corpuscular Volume 104.4 fL (80.0-100.0); Monocytes % (auto) 8.2 % (0.0-12.0); Neutrophils # (auto) 2.9 10 ^3/uL (1.6-8.6); Neutrophils % (auto) 59.3 % (37.0-80.0); Nucleated Red Blood Cells % 0.1 %; Red Blood Cells 3.67 10^6/uL (4.0-5.20); Red Cell Distribution Width 13.7 % (11.8-14.3)
[2024-02-23] MEDS: ALBUTEROL SULF 2.5 MG/0.5ML(0.5%) NEB SOLN NEB PRN (05:53)
[2024-02-23] MEDS: IPRATROPIUM BROM 0.5 MG/2.5ML INH SOL NEB PRN (05:53)
[2024-02-23 05:58] LABS: Alanine Aminotransferase 13 U/L (7-40); Alkaline Phosphatase 79 U/L (46-116); Anion Gap 5 (5-15); Aspartate Aminotransferase 18 U/L (13-40); Bilirubin, Total 0.6 mg/dL (0.2-1.0); Blood Urea Nitrogen 15 mg/dL (9-23); Calcium 9.1 mg/dL (8.5-10.1); Carbon Dioxide 26 mmol/L (20-30); Chloride 108 mmol/L (98-107); Cholesterol 174 mg/dL (< 200); Glucose 100 mg/dL (74-106); HDL Cholesterol 44 mg/dL (40-59); LDL Cholesterol 123 mg/dL (< 100); Sodium 139 mmol/L (136-145); Total Protein 6.2 g/dL (5.7-8.2); Triglycerides 102 mg/dL (< 150)
[2024-02-23] MEDS: PANTOPRAZOLE 40 MG/10 ML VIAL INJ IV SCH (08:13)
[2024-02-23] MEDS: ASPirin 81 mg TAB PO SCH (08:17)
[2024-02-23] MEDS: LISINOPRIL 20 MG TAB PO SCH (08:18)
[2024-02-23] MEDS: NICOTINE 21MG/24 HR TOPICAL PATCH TD SCH (08:27)
[2024-02-23] MEDS ORDERED: ALBUTEROL SULF 2.5 MG/0.5ML(0.5%) NEB SOLN NEB PRN ×3 (11:15→11:30)
[2024-02-23] MEDS ORDERED: ALBUTEROL SULF 2.5 MG/0.5ML(0.5%) NEB SOLN NEB SCH (14:00)
[2024-02-23] MEDS ORDERED: IPRATROPIUM BROM 0.5 MG/2.5ML INH SOL NEB SCH (14:00)
[2024-02-23] MEDS: methylPREDNISolone SOD SUCC 40 MG/ML VL IV ONE (14:29)
[2024-02-23] MEDS: SODIUM CHLORIDE 0.9% 1,000 ML IV SCH (14:32)
[2024-02-23] MEDS: cefTRIAXone 1GM/50ML D5W 50 ML IV ONE (14:35)
[2024-02-23] MEDS: AZITHROMYCIN 500MG/ 250ML 250 ML IV ONE (16:02)
[2024-02-23] MEDS: ALBUTEROL SULF 2.5 MG/0.5ML(0.5%) NEB SOLN NEB SCH (19:02)
[2024-02-23] MEDS: IPRATROPIUM BROM 0.5 MG/2.5ML INH SOL NEB SCH (19:02)
[2024-02-23] MEDS: methylPREDNISolone SOD SUCC 40 MG/ML VL IV SCH (22:01)
[2024-02-24] VITALS (20 sets, daily range): BP systolic 109–157; BP diastolic 52–71; PULSE 76–102; RESP 18–20; TEMP 98–98.4; O2SAT 90–100
[2024-02-24 06:41] LABS: Basophils # (auto) 0 10 ^3/uL (0-0.2); Basophils % (auto) 0.1 % (0.0-2.0); Eosinophils # (auto) 0 10 ^3/uL (0-0.8); Lymphocytes # (auto) 0.6 10 ^3/uL (0.4-5.4); Monocytes # (auto) 0.2 10 ^3/uL (0-1.3); Nucleated Red Blood Cells % 0.1 %
[2024-02-24 06:44] LABS: Lymphocytes % (auto) 11.5 % (10.0-50.0); Mean Corpuscular Hemoglobin 34.5 pg (28.0-32.0); Mean Corpuscular Hgb Conc. 33.3 g/dL (32.0-36.0); Mean Corpuscular Volume 103.6 fL (80.0-100.0); Monocytes % (auto) 3.6 % (0.0-12.0); Neutrophils # (auto) 4.1 10 ^3/uL (1.6-8.6); Neutrophils % (auto) 84.8 % (37.0-80.0); Red Blood Cells 4.05 10^6/uL (4.0-5.20); Red Cell Distribution Width 13.5 % (11.8-14.3); White Blood Cell 4.8 10^3/uL (4.4-10.8)
[2024-02-24 06:51] LABS: Anion Gap 4 (5-15); Carbon Dioxide 27 mmol/L (20-30); Chloride 108 mmol/L (98-107); Potassium 4.2 mmol/L (3.5-5.1); Sodium 139 mmol/L (136-145)
[2024-02-24 06:52] LABS: Calcium 9.4 mg/dL (8.5-10.1)
[2024-02-24 06:57] LABS: BUN/Creatinine Ratio 19.7 (10.0-20.0); Blood Urea Nitrogen 12 mg/dL (9-23); Glucose 138 mg/dL (74-106)
[2024-02-24] MEDS: cefTRIAXone 1GM/50ML D5W 50 ML IV SCH (09:01)
[2024-02-24] MEDS: AZITHROMYCIN 500MG/ 250ML 250 ML IV SCH (09:02)
[2024-02-24 13:35] LABS: Urine Bacteria NONE SEEN /hpf (None Seen); Urine Blood Negative /uL (Negative); Urine Clarity Clear (Clear); Urine Protein, UAD Negative (Negative); Urine Specific Gravity 1.012 (1.001-1.035); Urine Urobilinogen Normal (Negative); Urine WBC 9 /hpf (0 - 5); Urine pH 5.5 (5.0-9.0)
[2024-02-24 13:36] LABS: Urine Color Straw (Yellow)
[2024-02-24] MEDS: methylPREDNISolone SOD SUCC 40 MG/ML VL IV SCH (21:36)
[2024-02-25] VITALS (13 sets, daily range): BP systolic 126–140; BP diastolic 50–75; PULSE 79–98; RESP 16–20; TEMP 36.7; O2SAT 93–100
[2024-02-25] MEDS: AZITHROMYCIN 250 MG TAB PO SCH (08:55)
[2024-02-25] MEDS ORDERED: PRED20TA2 PO (11:55)
[2024-02-25] MEDS ORDERED: AZIT-43 PO (11:55)
== END 2024-02-25 15:10 | disposition home or self-care (01) | DRG 249 ==
LOC: ER 07:44 → EDBD 07:44 → TELE 13:13 → TELE-WESTW 22:33
PROVIDERS: ADMIT Nurse Practitioner Family; ATTEND Internal Medicine
DX: K52.9 Noninfective gastroenteritis and colitis, unspecified (principal); J15.69 Pneumonia due to other Gram-negative bacteria; J15.9 Unspecified bacterial pneumonia; J44.0 Chronic obstructive pulmonary disease with (acute) lower respiratory infection; J45.901 Unspecified asthma with (acute) exacerbation; E86.0 Dehydration; E11.9 Type 2 diabetes mellitus without complications; E78.5 Hyperlipidemia, unspecified; I10 Essential (primary) hypertension; R79.89 Other specified abnormal findings of blood chemistry; E66.01 Morbid (severe) obesity due to excess calories; F17.210 Nicotine dependence, cigarettes, uncomplicated; I25.10 Atherosclerotic heart disease of native coronary artery without angina pectoris; K46.9 Unspecified abdominal hernia without obstruction or gangrene; Z68.41 Body mass index [BMI] 40.0-44.9, adult; Z85.038 Personal history of other malignant neoplasm of large intestine
CPT/HCPCS: 36415; 36600; 70450; 71045; 74176; 80048; 80053; 80061; 81001; 82607; 82805; 83690; 83735; 84443; 84484; 85025; 85379; 85610; 87493; 93005; 94640; 96361; 96374; C9113; G0378; J2405